=== PATIENT | male | born 1935 | race Asian ===

== ENCOUNTER 2018-10-20 06:49 | Inpatient (IN) | payer MEDICARE, OTHER ==
[~2018-10-20] VITALS: Ht 167.6 cm; Wt 60.9 kg
[2018-10-20] MEDS ORDERED: ALBUTEROL SULFATE 2.5 MG/0.5 ML NEB SOLUTION NEB ONE (07:00)
[2018-10-20] MEDS ORDERED: IPRATROPIUM BROMIDE 0.5 MG/2.5 ML NEB SOLUTION NEB ONE (07:00)
[2018-10-20] MEDS ORDERED: RANO10003 PO (07:09)
[2018-10-20] MEDS ORDERED: ISOS60TA4 PO (07:09)
[2018-10-20] MEDS ORDERED: CARV25TA32 PO (07:09)
[2018-10-20] MEDS ORDERED: ONDA4TAB4 PO (07:09)
[2018-10-20] MEDS ORDERED: AMLO5TAB66 PO (07:09)
[2018-10-20] MEDS ORDERED: APIX2.5T PO (07:09)
[2018-10-20] MEDS ORDERED: HYDR-4173 PO (07:09)
[2018-10-20] MEDS ORDERED: SEVE0.8P6 PO (07:09)
[2018-10-20] MEDS ORDERED: ATOR-2 PO (07:09)
[2018-10-20] MEDS ORDERED: INSLAN SQ (07:09)
[2018-10-20] MEDS ORDERED: PANT20TA12 PO (07:09)
[2018-10-20] MEDS ORDERED: ALLO100T PO (07:09)
[2018-10-20] MEDS ORDERED: BUME1TAB12 PO (07:09)
[2018-10-20] MEDS ORDERED: CLOP75 PO (07:09)
[2018-10-20] MEDS ORDERED: B CO1TAB6 PO (07:09)
[2018-10-20] MEDS ORDERED: DOCU250C91 PO (07:09)
[2018-10-20 07:12] LABS: BASOPHILS % (AUTO) 0.3 % (0.0-2.0); EOSINOPHILS % (AUTO) 1.1 % (1.0-6.0); HEMATOCRIT 27.3 % (41-53); HEMOGLOBIN 9.2 g/dL (13.5-17.5); LYMPHOCYTES # (AUTO) 0.6 K/uL (1.0-4.8); LYMPHOCYTES % (AUTO) 7.5 % (22.0-44.0); MEAN CORPUSCULAR HEMOGLOBIN 31.7 pg (26.0-34.0); MEAN CORPUSCULAR HGB CONC 33.8 G/dL (31.0-37.0); MEAN CORPUSCULAR VOLUME 94 fL (80-100); MONOCYTES # (AUTO) 1.1 K/uL (0.1-1.0); MONOCYTES % (AUTO) 13.7 % (2.0-9.0); NEUTROPHILS # (AUTO) 6.1 K/uL (1.8-7.7); NEUTROPHILS % (AUTO) 77.4 % (40.0-70.0); PLATELET COUNT (AUTO) 111 K/uL (150-450); RED BLOOD CELL COUNT(AUTO) 2.91 MIL/uL (4.50-5.90); RED CELL DISTRIBUTION WIDTH 17.2 % (11.5-14.5)
[2018-10-20 07:26] LABS: SOURCE, BLOOD GAS ARTERIAL; TEMPERATURE, FAHRENHEIT, BG 98.6 FAHREN (96.0-98.6)
[2018-10-20 07:30] LABS: ALBUMIN 3.1 g/dL (3.4-5.0); BILIRUBIN,TOTAL 0.7 mg/dL (0.1-1.0); CALCIUM, TOTAL 8.9 mg/dL (8.8-10.5); CREATININE 8.97 mg/dL (0.60-1.30); TOTAL PROTEIN, SERUM 6.9 g/dL (6.4-8.2)
[2018-10-20 07:33] LABS: POTASSIUM 6.5 mmol/L (3.5-5.1)
[2018-10-20 07:39] LABS: INR 1.1 (0.9-1.1); PROTHROMBIN TIME 11.4 SEC (9.4-11.6)
[2018-10-20] MEDS ORDERED: FUROSEMIDE 40 MG/4 ML VIAL IVP ONE (07:45)
[2018-10-20 08:01] LABS: LACTIC ACID 1.1 mmol/L (0.4-2.0)
[2018-10-20] MEDS ORDERED: CALCIUM GLUCONATE 100 MG/ML 10 ML IVP ONE ×2 (08:15→12:00)
[2018-10-20 08:40] LABS: APPEARANCE,URINE CLEAR (CLEAR); BILIRUBIN,URINE NEGATIVE (NEGATIVE); GLUCOSE, URINE (UA) 250 mg/dL (NEGATIVE); KETONES,URINE NEGATIVE (NEGATIVE); LEUKOCYTE ESTERASE ,URINE NEGATIVE (NEGATIVE); NITRATE,URINE NEGATIVE (NEGATIVE); OCCULT BLOOD,URINE TRACE (NEGATIVE); PROTEIN,URINE SEE CONFIRM (NEGATIVE); UROBILINOGEN,URINE 0.2 mg/dL (<=1.0)
[2018-10-20 08:51] LABS: SULFOSALICYLIC ACID,URINE 3+ (Negative)
[2018-10-20 08:52] LABS: BACTERIA,URINE Few /HPF (None Seen); SQUAMOUS EPITHELIAL CELL,UR Moderate /LPF (None Seen)
[2018-10-20] MEDS: METOPROLOL TARTRATE 25 MG TABLET PO SCH ×2 (09:00→21:28)
[2018-10-20 09:28] LABS: ABG A-A DIFF O2 187.2 mmHg (10-20.0); ABG BASE EXCESS -3.3 mmol/L (-2.0-3.0); ABG CARBOXYHEMOGLOBIN 1.1 % (0.0-1.5); ABG HCO3 22.4 mmol/L (22.0-26.0); ABG METHEMOGLOBIN 0.2 % (0.0-1.5); ABG OXYGEN CONTENT 13.7 mL/dL (15.0-23.0); ABG OXYHEMOGLOBIN 97.7 % (94.0-100.0); ABG PCO2 29 mmHg (35-45); ABG PH 7.462 (7.35-7.450); ABG TOTAL HEMOGLOBIN 9.6 G/dL (12.0-18.0); PO2, ARTERIAL BG 208.3 mmHg (71.0-79.0)
[2018-10-20 09:29] LABS: O2 DEVICE,BLOOD GAS BIPAP (ROOM AIR); SITE, BLOOD GAS RT BRACHIAL
[2018-10-20 09:30] LABS: CPAP, BG 0 cm H2O; PRESSURE SUPPORT, BG 12 cm H2O; SPONTANEOUS VT, BG 580 ml
[2018-10-20] MEDS ORDERED: INSULIN REGULAR, HUMAN 100 UNITS/ML IVP ONE (10:00)
[2018-10-20] MEDS: DEXTROSE 50%-WATER 25 GM/50 ML SYRINGE IVP ONE ×2 (10:00→13:12)
[2018-10-20] MEDS: SODIUM POLYSTYRENE SULFONATE 15 GM/60 ML SUSPENSION BOTTLE PO ONE ×2 (10:00→13:13)
[2018-10-20 10:42] VITALS: BP 153/73
[2018-10-20 10:50] VITALS: BP 153/73
[2018-10-20] MEDS ORDERED: HYDROCODONE/ACETAMINOPHEN 5-325 MG TABLET PO PRN (11:45)
[2018-10-20] MEDS ORDERED: ONDANSETRON HCL 4 MG/2 ML VIAL IVP PRN (11:45)
[2018-10-20] MEDS ORDERED: ZOLPIDEM TARTRATE 5 MG TABLET PO PRN (11:45)
[2018-10-20] MEDS ORDERED: MORPHINE SULFATE 4 MG/ML SYRINGE IVP PRN (11:45)
[2018-10-20] MEDS ORDERED: BISACODYL 10 MG RECTAL RECTAL SUPPOSITORY PR PRN (11:45)
[2018-10-20] MEDS ORDERED: ACETAMINOPHEN 325 MG TABLET PO PRN (11:45)
[2018-10-20] MEDS ORDERED: MAGNESIUM HYDROXIDE SUSPENSION 30 ML UDCUP PO PRN (11:45)
[2018-10-20] MEDS: ATORVASTATIN CALCIUM 40 MG TABLET PO SCH (13:07)
[2018-10-20] MEDS: PANTOPRAZOLE SODIUM 40 MG/VIAL IVP SCH (13:07)
[2018-10-20] MEDS: CLOPIDOGREL BISULFATE 75 MG TABLET PO SCH (13:08)
[2018-10-20] MEDS: NITROGLYCERIN 2% (1 GM=INCH) PACKET TP SCH ×2 (13:08→17:17)
[2018-10-20 15:13] VITALS: BP 148/75
[2018-10-20] MEDS: ISOSORBIDE DINITRATE 10 MG TABLET PO SCH ×2 (16:00→21:28)
[2018-10-20] MEDS ORDERED: MANNITOL 25%-12.5 GM/50 ML VIAL IVP ONE (17:46)
[2018-10-20] MEDS ORDERED: ALBUMIN HUMAN 25%-12.5GM/50ML IV BOTTLE IV ONE (17:46)
[2018-10-20] MEDS: SEVELAMER CARBONATE 800 MG POWDER PACKET PO SCH (18:56)
[2018-10-20 19:27] VITALS: BP 136/78
[2018-10-20] MEDS: HydrALAZINE HCL 25 MG TABLET PO SCH (21:28)
[2018-10-20] MEDS: DOCUSATE SODIUM 100 MG CAPSULE PO SCH (21:28)
[2018-10-20 23:33] VITALS: BP 102/58
[2018-10-21 04:40] VITALS: BP 144/68
[2018-10-21 07:39] VITALS: BP 157/70
[2018-10-21 08:04] LABS: BILIRUBIN,TOTAL 0.8 mg/dL (0.1-1.0); CALCIUM, TOTAL 9.4 mg/dL (8.8-10.5); CREATININE 6.32 mg/dL (0.60-1.30); MAGNESIUM 2.1 mg/dL (1.80-2.40); POTASSIUM 5.2 mmol/L (3.5-5.1); TOTAL PROTEIN, SERUM 6.3 g/dL (6.4-8.2)
[2018-10-21 08:06] LABS: % IRON SATURATION 12.6 % (30-44)
[2018-10-21] MEDS ORDERED: [UNRECOGNIZED DRUG - OTHER] PO SCH (09:00)
[2018-10-21] MEDS ORDERED: AmLODIPine BESYLATE 5 MG TABLET PO SCH (09:00)
[2018-10-21] MEDS ORDERED: PANTOPRAZOLE SODIUM 40 MG DR TABLET PO SCH (09:00)
[2018-10-21] MEDS ORDERED: APIXABAN 2.5 MG TABLET PO SCH ×2 (09:00)
[2018-10-21] MEDS ORDERED: CLOPIDOGREL BISULFATE 75 MG TABLET PO SCH (09:00)
[2018-10-21] MEDS ORDERED: [UNRECOGNIZED DRUG - OTHER] PO SCH (09:00)
[2018-10-21] MEDS ORDERED: CARVEDILOL 25 MG TABLET PO SCH (09:00)
[2018-10-21] MEDS: CLOPIDOGREL BISULFATE 75 MG TABLET PO SCH (09:25)
[2018-10-21] MEDS: METOPROLOL TARTRATE 25 MG TABLET PO SCH ×2 (09:25→21:27)
[2018-10-21] MEDS: VITAMIN B COMPLEX WITH C TABLET PO SCH (09:25)
[2018-10-21] MEDS: ISOSORBIDE DINITRATE 10 MG TABLET PO SCH ×3 (09:25→21:28)
[2018-10-21] MEDS: RANOLAZINE 500 MG ER TABLET PO SCH (09:25)
[2018-10-21] MEDS: SEVELAMER CARBONATE 800 MG POWDER PACKET PO SCH ×2 (09:25→17:45)
[2018-10-21] MEDS: HydrALAZINE HCL 25 MG TABLET PO SCH ×2 (09:25→21:28)
[2018-10-21] MEDS: DOCUSATE SODIUM 100 MG CAPSULE PO SCH ×2 (09:25→21:27)
[2018-10-21] MEDS: ATORVASTATIN CALCIUM 40 MG TABLET PO SCH (09:25)
[2018-10-21] MEDS: PANTOPRAZOLE SODIUM 40 MG/VIAL IVP SCH (09:26)
[2018-10-21] MEDS: NITROGLYCERIN 2% (1 GM=INCH) PACKET TP SCH ×3 (09:26→17:45)
[2018-10-21] MEDS: EPOETIN ALFA 10,000 UNITS/ML VIAL SQ SCH (09:31)
[2018-10-21] MEDS: INSULIN GLARGINE,HUM.REC.ANLOG 100 UNITS/ML SQ SCH (09:32)
[2018-10-21 09:44] LABS: GLUCOMETER DEV NAME(LOC) 5N 1P; GLUCOSE,POINT OF CARE 140 MG/DL (70-110)
[2018-10-21] MEDS: ALLOPURINOL 100 MG TABLET PO SCH (09:54)
[2018-10-21 10:09] LABS: BASOPHILS % (AUTO) 0.2 % (0.0-2.0); EOSINOPHILS % (AUTO) 1.2 % (1.0-6.0); HEMATOCRIT 24.6 % (41-53); HEMOGLOBIN 8.3 g/dL (13.5-17.5); LYMPHOCYTES # (AUTO) 0.6 K/uL (1.0-4.8); LYMPHOCYTES % (AUTO) 7.8 % (22.0-44.0); MEAN CORPUSCULAR HGB CONC 33.7 G/dL (31.0-37.0); MEAN CORPUSCULAR VOLUME 95 fL (80-100); MONOCYTES # (AUTO) 1.3 K/uL (0.1-1.0); MONOCYTES % (AUTO) 16.6 % (2.0-9.0); NEUTROPHILS # (AUTO) 5.6 K/uL (1.8-7.7); NEUTROPHILS % (AUTO) 74.2 % (40.0-70.0); PLATELET COUNT (AUTO) 103 K/uL (150-450); RED CELL DISTRIBUTION WIDTH 17.8 % (11.5-14.5)
[2018-10-21 11:35] VITALS: BP 143/57
[2018-10-21] MEDS ORDERED: AMLO-512 PO (11:55)
[2018-10-21] MEDS ORDERED: SEVEC800 PO (11:55)
[2018-10-21] MEDS ORDERED: PANT40TA25 PO (11:55)
[2018-10-21] MEDS ORDERED: SODIUM CHLORIDE 0.9% 250 ML IV ONE (13:54)
[2018-10-21] MEDS: PANTOPRAZOLE SODIUM 80 MG in SODIUM CHLORIDE 0.9% 100 ML IV SCH ×2 (13:56→22:27)
[2018-10-21 16:16] VITALS: BP 105/56
[2018-10-21 20:45] VITALS: BP 119/64
[2018-10-22] VITALS (7 sets, daily range): BP systolic 109–128; BP diastolic 49–61
[2018-10-22] MEDS: NITROGLYCERIN 2% (1 GM=INCH) PACKET TP SCH ×4 (00:15→23:17)
[2018-10-22 07:33] LABS: BASOPHILS % (AUTO) 0.5 % (0.0-2.0); EOSINOPHILS % (AUTO) 1.6 % (1.0-6.0); HEMATOCRIT 22.1 % (41-53); HEMOGLOBIN 7.6 g/dL (13.5-17.5); LYMPHOCYTES # (AUTO) 0.7 K/uL (1.0-4.8); LYMPHOCYTES % (AUTO) 11.9 % (22.0-44.0); MEAN CORPUSCULAR HEMOGLOBIN 31.6 pg (26.0-34.0); MEAN CORPUSCULAR HGB CONC 34.6 G/dL (31.0-37.0); MEAN CORPUSCULAR VOLUME 91 fL (80-100); MONOCYTES # (AUTO) 1.1 K/uL (0.1-1.0); MONOCYTES % (AUTO) 18.1 % (2.0-9.0); NEUTROPHILS # (AUTO) 4.2 K/uL (1.8-7.7); NEUTROPHILS % (AUTO) 67.9 % (40.0-70.0); PLATELET COUNT (AUTO) 102 K/uL (150-450); RED BLOOD CELL COUNT(AUTO) 2.42 MIL/uL (4.50-5.90); RED CELL DISTRIBUTION WIDTH 17.6 % (11.5-14.5)
[2018-10-22 07:50] LABS: ALBUMIN 2.8 g/dL (3.4-5.0); BILIRUBIN,TOTAL 0.7 mg/dL (0.1-1.0); CALCIUM, TOTAL 7.8 mg/dL (8.8-10.5); CREATININE 5.49 mg/dL (0.60-1.30); MAGNESIUM 1.9 mg/dL (1.80-2.40); POTASSIUM 4.4 mmol/L (3.5-5.1); TOTAL PROTEIN, SERUM 5.5 g/dL (6.4-8.2)
[2018-10-22] MEDS: PANTOPRAZOLE SODIUM 80 MG in SODIUM CHLORIDE 0.9% 100 ML IV SCH ×2 (08:07→19:53)
[2018-10-22] MEDS: ISOSORBIDE DINITRATE 10 MG TABLET PO SCH ×3 (08:08→21:00)
[2018-10-22] MEDS: RANOLAZINE 500 MG ER TABLET PO SCH (08:08)
[2018-10-22] MEDS: ATORVASTATIN CALCIUM 40 MG TABLET PO SCH (08:08)
[2018-10-22] MEDS: SEVELAMER CARBONATE 800 MG POWDER PACKET PO SCH ×2 (08:08→17:50)
[2018-10-22] MEDS: VITAMIN B COMPLEX WITH C TABLET PO SCH (08:08)
[2018-10-22] MEDS: DOCUSATE SODIUM 100 MG CAPSULE PO SCH ×2 (08:08→20:59)
[2018-10-22] MEDS: ALLOPURINOL 100 MG TABLET PO SCH (08:09)
[2018-10-22] MEDS: METOPROLOL TARTRATE 25 MG TABLET PO SCH ×2 (08:09→21:00)
[2018-10-22] MEDS: HydrALAZINE HCL 25 MG TABLET PO SCH ×2 (08:14→21:00)
[2018-10-22] MEDS: AmLODIPine BESYLATE 10 MG TABLET PO SCH (08:15)
[2018-10-22] MEDS: INSULIN GLARGINE,HUM.REC.ANLOG 100 UNITS/ML SQ SCH (08:19)
[2018-10-23] VITALS (12 sets, daily range): BP systolic 125–172; BP diastolic 58–79
[2018-10-23] MEDS: PANTOPRAZOLE SODIUM 80 MG in SODIUM CHLORIDE 0.9% 100 ML IV SCH (05:32)
[2018-10-23] MEDS ORDERED: SODIUM CHLORIDE 0.9% 1,000 ML IV ONE ×2 (06:38→12:03)
[2018-10-23 07:28] LABS: BASOPHILS % (AUTO) 0.6 % (0.0-2.0); EOSINOPHILS % (AUTO) 1.3 % (1.0-6.0); HEMATOCRIT 21.6 % (41-53); HEMOGLOBIN 7.5 g/dL (13.5-17.5); LYMPHOCYTES # (AUTO) 0.8 K/uL (1.0-4.8); LYMPHOCYTES % (AUTO) 12.9 % (22.0-44.0); MEAN CORPUSCULAR HEMOGLOBIN 31.6 pg (26.0-34.0); MEAN CORPUSCULAR HGB CONC 34.6 G/dL (31.0-37.0); MEAN CORPUSCULAR VOLUME 91 fL (80-100); MONOCYTES # (AUTO) 0.9 K/uL (0.1-1.0); MONOCYTES % (AUTO) 15.2 % (2.0-9.0); NEUTROPHILS # (AUTO) 4.2 K/uL (1.8-7.7); PLATELET COUNT (AUTO) 111 K/uL (150-450); RED BLOOD CELL COUNT(AUTO) 2.36 MIL/uL (4.50-5.90); RED CELL DISTRIBUTION WIDTH 18.6 % (11.5-14.5)
[2018-10-23 07:44] LABS: ALBUMIN 3.1 g/dL (3.4-5.0); BILIRUBIN,TOTAL 0.5 mg/dL (0.1-1.0); CALCIUM, TOTAL 7.6 mg/dL (8.8-10.5); CREATININE 5.37 mg/dL (0.60-1.30); MAGNESIUM 1.8 mg/dL (1.80-2.40); POTASSIUM 3.7 mmol/L (3.5-5.1)
[2018-10-23] MEDS: NITROGLYCERIN 2% (1 GM=INCH) PACKET TP SCH (08:00)
[2018-10-23] MEDS: SEVELAMER CARBONATE 800 MG POWDER PACKET PO SCH ×2 (08:00→18:00)
[2018-10-23] MEDS: METOPROLOL TARTRATE 25 MG TABLET PO SCH ×2 (09:00→20:34)
[2018-10-23] MEDS: ISOSORBIDE DINITRATE 10 MG TABLET PO SCH ×3 (09:00→20:34)
[2018-10-23] MEDS: ATORVASTATIN CALCIUM 40 MG TABLET PO SCH ×2 (09:00→10:49)
[2018-10-23] MEDS: VITAMIN B COMPLEX WITH C TABLET PO SCH ×2 (09:00→10:50)
[2018-10-23] MEDS: INSULIN GLARGINE,HUM.REC.ANLOG 100 UNITS/ML SQ SCH (09:00)
[2018-10-23] MEDS: ALLOPURINOL 100 MG TABLET PO SCH ×2 (09:00→10:50)
[2018-10-23] MEDS: DOCUSATE SODIUM 100 MG CAPSULE PO SCH ×2 (09:00→20:34)
[2018-10-23] MEDS ORDERED: SODIUM CHLORIDE 0.9% 250 ML IV ONE (10:08)
[2018-10-23] MEDS: AmLODIPine BESYLATE 10 MG TABLET PO SCH (10:49)
[2018-10-23] MEDS: HydrALAZINE HCL 25 MG TABLET PO SCH ×2 (10:49→20:34)
[2018-10-23] MEDS: EPOETIN ALFA 10,000 UNITS/ML VIAL SQ SCH (10:49)
[2018-10-23] MEDS: RANOLAZINE 500 MG ER TABLET PO SCH (10:50)
[2018-10-23] MEDS: PANTOPRAZOLE SODIUM 40 MG/VIAL IVP SCH ×2 (13:30→20:34)
[2018-10-23 15:39] LABS: HEMATOCRIT 26.7 % (41-53); HEMOGLOBIN 9.1 g/dL (13.5-17.5)
[2018-10-24 05:27] VITALS: BP 142/81
[2018-10-24 07:18] VITALS: BP 137/59
[2018-10-24 07:20] LABS: BASOPHILS % (AUTO) 0.9 % (0.0-2.0); EOSINOPHILS % (AUTO) 1.6 % (1.0-6.0); HEMATOCRIT 29.1 % (41-53); HEMOGLOBIN 9.8 g/dL (13.5-17.5); LYMPHOCYTES # (AUTO) 0.6 K/uL (1.0-4.8); MEAN CORPUSCULAR HEMOGLOBIN 30.3 pg (26.0-34.0); MEAN CORPUSCULAR HGB CONC 33.6 G/dL (31.0-37.0); MEAN CORPUSCULAR VOLUME 90 fL (80-100); MONOCYTES # (AUTO) 1.1 K/uL (0.1-1.0); MONOCYTES % (AUTO) 16.9 % (2.0-9.0); NEUTROPHILS # (AUTO) 4.4 K/uL (1.8-7.7); NEUTROPHILS % (AUTO) 70.6 % (40.0-70.0); PLATELET COUNT (AUTO) 142 K/uL (150-450); RED BLOOD CELL COUNT(AUTO) 3.23 MIL/uL (4.50-5.90)
[2018-10-24 07:55] LABS: ALBUMIN 3.2 g/dL (3.4-5.0); BILIRUBIN,TOTAL 0.8 mg/dL (0.1-1.0); CALCIUM, TOTAL 8.5 mg/dL (8.8-10.5); CREATININE 5.98 mg/dL (0.60-1.30); MAGNESIUM 1.9 mg/dL (1.80-2.40); POTASSIUM 4.7 mmol/L (3.5-5.1)
[2018-10-24] MEDS: RANOLAZINE 500 MG ER TABLET PO SCH (08:19)
[2018-10-24] MEDS: SEVELAMER CARBONATE 800 MG POWDER PACKET PO SCH ×2 (08:19→16:37)
[2018-10-24] MEDS: ATORVASTATIN CALCIUM 40 MG TABLET PO SCH (08:19)
[2018-10-24] MEDS: AmLODIPine BESYLATE 10 MG TABLET PO SCH (08:19)
[2018-10-24] MEDS: HydrALAZINE HCL 25 MG TABLET PO SCH ×2 (08:19→20:20)
[2018-10-24] MEDS: PANTOPRAZOLE SODIUM 40 MG/VIAL IVP SCH ×2 (08:19→20:20)
[2018-10-24] MEDS: DOCUSATE SODIUM 100 MG CAPSULE PO SCH ×2 (08:20→20:20)
[2018-10-24] MEDS: ALLOPURINOL 100 MG TABLET PO SCH (08:20)
[2018-10-24] MEDS: ISOSORBIDE DINITRATE 10 MG TABLET PO SCH ×3 (08:20→20:20)
[2018-10-24] MEDS: METOPROLOL TARTRATE 25 MG TABLET PO SCH ×2 (08:20→20:20)
[2018-10-24] MEDS: VITAMIN B COMPLEX WITH C TABLET PO SCH (08:23)
[2018-10-24] MEDS: INSULIN GLARGINE,HUM.REC.ANLOG 100 UNITS/ML SQ SCH (08:42)
[2018-10-24 11:41] VITALS: BP 101/56
[2018-10-24 12:59] LABS: GLUCOMETER DEV NAME(LOC) 5S.2; GLUCOSE,POINT OF CARE 163 MG/DL (70-110)
[2018-10-24] MEDS: APIXABAN 2.5 MG TABLET PO SCH (16:38)
[2018-10-24 19:29] VITALS: BP 126/63
[2018-10-24 23:47] VITALS: BP 136/68
[2018-10-25 04:56] VITALS: BP 151/65
[2018-10-25 06:30] LABS: BASOPHILS % (AUTO) 0.7 % (0.0-2.0); HEMATOCRIT 29.1 % (41-53); HEMOGLOBIN 9.7 g/dL (13.5-17.5); LYMPHOCYTES # (AUTO) 0.7 K/uL (1.0-4.8); LYMPHOCYTES % (AUTO) 14.2 % (22.0-44.0); MEAN CORPUSCULAR HGB CONC 33.2 G/dL (31.0-37.0); MEAN CORPUSCULAR VOLUME 90 fL (80-100); MONOCYTES # (AUTO) 0.9 K/uL (0.1-1.0); MONOCYTES % (AUTO) 17.4 % (2.0-9.0); NEUTROPHILS # (AUTO) 3.5 K/uL (1.8-7.7); NEUTROPHILS % (AUTO) 65.7 % (40.0-70.0); PLATELET COUNT (AUTO) 148 K/uL (150-450); RED BLOOD CELL COUNT(AUTO) 3.23 MIL/uL (4.50-5.90); RED CELL DISTRIBUTION WIDTH 19.7 % (11.5-14.5)
[2018-10-25 07:21] VITALS: BP 125/56
[2018-10-25] MEDS ORDERED: SODIUM CHLORIDE 0.9% 2,000 ML IV ONE (07:31)
[2018-10-25] MEDS: SEVELAMER CARBONATE 800 MG POWDER PACKET PO SCH (08:00)
[2018-10-25] MEDS ORDERED: MANNITOL 25%-12.5 GM/50 ML VIAL IVP PRN (08:15)
[2018-10-25] MEDS ORDERED: CLOPIDOGREL BISULFATE 75 MG TABLET PO SCH (09:00)
[2018-10-25] MEDS: VITAMIN B COMPLEX WITH C TABLET PO SCH (09:00)
[2018-10-25] MEDS: ISOSORBIDE DINITRATE 10 MG TABLET PO SCH (09:00)
[2018-10-25] MEDS: HydrALAZINE HCL 25 MG TABLET PO SCH (09:00)
[2018-10-25] MEDS: EPOETIN ALFA 10,000 UNITS/ML VIAL SQ SCH (09:00)
[2018-10-25 11:17] VITALS: BP 100/65
[2018-10-25] MEDS: DOCUSATE SODIUM 100 MG CAPSULE PO SCH (12:07)
[2018-10-25] MEDS: APIXABAN 2.5 MG TABLET PO SCH (12:07)
[2018-10-25] MEDS: METOPROLOL TARTRATE 25 MG TABLET PO SCH (12:07)
[2018-10-25] MEDS: ALLOPURINOL 100 MG TABLET PO SCH (12:07)
[2018-10-25] MEDS: RANOLAZINE 500 MG ER TABLET PO SCH (12:07)
[2018-10-25] MEDS: AmLODIPine BESYLATE 10 MG TABLET PO SCH (12:07)
[2018-10-25] MEDS: ATORVASTATIN CALCIUM 40 MG TABLET PO SCH (12:08)
[2018-10-25] MEDS: PANTOPRAZOLE SODIUM 40 MG/VIAL IVP SCH (12:08)
[2018-10-25] MEDS: INSULIN GLARGINE,HUM.REC.ANLOG 100 UNITS/ML SQ SCH (12:17)
[2018-10-25 15:09] VITALS: BP 109/71
[2018-10-25 19:49] LABS: GLUCOMETER DEV NAME(LOC) 5S.2; GLUCOSE,POINT OF CARE 79 MG/DL (70-110)
== END 2018-10-25 15:35 | disposition home or self-care (01) | DRG 280 ==
LOC: EMS 06:51 → 5S 08:43 → 5N 10-23 17:45 → 5S 10-23 17:50 → 5N 10-23 18:07 → 5S 10-23 18:50
PROVIDERS: ADMIT Internal Medicine; ATTEND Internal Medicine
PROC: 5A1D70Z Performance of Urinary Filtration, Intermittent, Less than 6 Hours Per Day (ICD-10-PCS; 2018-10-20)
PROC: 5A1D70Z Performance of Urinary Filtration, Intermittent, Less than 6 Hours Per Day (ICD-10-PCS; 2018-10-21)
PROC: 30233N1 Transfusion of Nonautologous Red Blood Cells into Peripheral Vein, Percutaneous Approach (ICD-10-PCS; 2018-10-23)
PROC: 5A1D70Z Performance of Urinary Filtration, Intermittent, Less than 6 Hours Per Day (ICD-10-PCS; 2018-10-23)
PROC: 0DJ08ZZ Inspection of Upper Intestinal Tract, Via Natural or Artificial Opening Endoscopic (ICD-10-PCS; principal; 2018-10-23 12:00)
PROC: 5A1D70Z Performance of Urinary Filtration, Intermittent, Less than 6 Hours Per Day (ICD-10-PCS; 2018-10-25)
DX: I21.4 Non-ST elevation (NSTEMI) myocardial infarction (principal); J96.91 Respiratory failure, unspecified with hypoxia; I50.21 Acute systolic (congestive) heart failure; N18.6 End stage renal disease; K25.4 Chronic or unspecified gastric ulcer with hemorrhage; I13.2 Hypertensive heart and chronic kidney disease with heart failure and with stage 5 chronic kidney disease, or end stage renal disease; E44.0 Moderate protein-calorie malnutrition; N25.81 Secondary hyperparathyroidism of renal origin; I21.9 Acute myocardial infarction, unspecified; E87.5 Hyperkalemia; E78.5 Hyperlipidemia, unspecified; E11.22 Type 2 diabetes mellitus with diabetic chronic kidney disease; M10.9 Gout, unspecified; I48.0 Paroxysmal atrial fibrillation; K31.9 Disease of stomach and duodenum, unspecified; D63.1 Anemia in chronic kidney disease; F32.9 Major depressive disorder, single episode, unspecified; G89.29 Other chronic pain; E11.51 Type 2 diabetes mellitus with diabetic peripheral angiopathy without gangrene; E83.39 Other disorders of phosphorus metabolism; K59.09 Other constipation; I25.119 Atherosclerotic heart disease of native coronary artery with unspecified angina pectoris; K59.00 Constipation, unspecified; K64.9 Unspecified hemorrhoids; Z79.01 Long term (current) use of anticoagulants; Z99.2 Dependence on renal dialysis; Z79.4 Long term (current) use of insulin; Z91.11 Patient's noncompliance with dietary regimen; Z95.1 Presence of aortocoronary bypass graft; Z95.5 Presence of coronary angioplasty implant and graft
CPT/HCPCS: 82271; 82728; 82805; 83540; 83550; 83605; 83735; 84132; 85014; 85018; 86704; 86706; 86850; 86900; 86901; 86920; 87040; 87081; 87340; 93005; 93306; 94640; 94660; 96374; 96375; 97161; 97530; 99291; C9113; G0378; J0610; J0885; J1815; J1940; J2150; J7030; J7050; P9016; P9047

== ENCOUNTER 2018-12-30 18:38 | Inpatient (IN) | payer MEDICARE, OTHER ==
[~2018-12-30] VITALS: Ht 167.6 cm; Wt 57.5 kg
[~2018-12-30 18:38] MED LIST: ATOR-2 PO; B CO1TAB6 PO; CARV25TA32 PO; DOCU250C91 PO; ONDA4TAB4 PO; PANT40TA25 PO; RANO10003 PO; SEVEC800 PO
[2018-12-30] MEDS ORDERED: ASPI-556 PO (18:48)
[2018-12-30 18:54] LABS: GLUCOSE,POINT OF CARE 144 MG/DL (70-110)
[2018-12-30 19:18] LABS: BASOPHILS % (AUTO) 0.4 % (0.0-2.0); EOSINOPHILS % (AUTO) 1.1 % (1.0-6.0); HEMATOCRIT 29.6 % (41-53); HEMOGLOBIN 9.7 g/dL (13.5-17.5); LYMPHOCYTES # (AUTO) 0.6 K/uL (1.0-4.8); LYMPHOCYTES % (AUTO) 10.4 % (22.0-44.0); MEAN CORPUSCULAR HEMOGLOBIN 29.3 pg (26.0-34.0); MEAN CORPUSCULAR HGB CONC 32.8 G/dL (31.0-37.0); MEAN CORPUSCULAR VOLUME 89 fL (80-100); MONOCYTES # (AUTO) 0.9 K/uL (0.1-1.0); MONOCYTES % (AUTO) 15.8 % (2.0-9.0); NEUTROPHILS # (AUTO) 4.2 K/uL (1.8-7.7); NEUTROPHILS % (AUTO) 72.3 % (40.0-70.0); PLATELET COUNT (AUTO) 138 K/uL (150-450); RED BLOOD CELL COUNT(AUTO) 3.33 MIL/uL (4.50-5.90); RED CELL DISTRIBUTION WIDTH 21.2 % (11.5-14.5)
[2018-12-30 19:34] LABS: CALCIUM, TOTAL 9.2 mg/dL (8.8-10.5); CREATININE 2.73 mg/dL (0.60-1.30); POTASSIUM 3.8 mmol/L (3.5-5.1)
[2018-12-30 19:38] LABS: ALBUMIN 3.1 g/dL (3.4-5.0); BILIRUBIN,TOTAL 0.8 mg/dL (0.1-1.0); TOTAL PROTEIN, SERUM 7.3 g/dL (6.4-8.2)
[2018-12-30] MEDS ORDERED: MAGNESIUM HYDROXIDE SUSPENSION 30 ML UDCUP PO PRN (22:00)
[2018-12-30] MEDS ORDERED: HYDROCODONE/ACETAMINOPHEN 5-325 MG TABLET PO PRN (22:00)
[2018-12-30] MEDS ORDERED: ACETAMINOPHEN 325 MG TABLET PO PRN (22:00)
[2018-12-30] MEDS ORDERED: MORPHINE SULFATE 2 MG/ML SYRINGE IVP PRN (22:00)
[2018-12-30] MEDS ORDERED: BISACODYL 10 MG RECTAL RECTAL SUPPOSITORY PR PRN (22:00)
[2018-12-30] MEDS ORDERED: ONDANSETRON HCL 4 MG TABLET PO ONE (22:15)
[2018-12-30 22:33] LABS: GLUCOSE,POINT OF CARE 135 MG/DL (70-110)
[2018-12-30] MEDS: HEPARIN SODIUM,PORCINE 5,000 UNITS/ML VIAL SQ SCH (23:22)
[2018-12-31] MEDS ORDERED: SEVELAMER CARBONATE 800 MG TABLET PO SCH (08:00)
[2018-12-31 08:13] LABS: GLUCOSE,POINT OF CARE 126 MG/DL (70-110)
[2018-12-31 08:54] VITALS: BP 171/99
[2018-12-31 09:35] LABS: BASOPHILS % (AUTO) 0.7 % (0.0-2.0); EOSINOPHILS % (AUTO) 1.3 % (1.0-6.0); HEMATOCRIT 28.6 % (41-53); HEMOGLOBIN 9.5 g/dL (13.5-17.5); LYMPHOCYTES # (AUTO) 0.7 K/uL (1.0-4.8); LYMPHOCYTES % (AUTO) 11.3 % (22.0-44.0); MEAN CORPUSCULAR HEMOGLOBIN 29.9 pg (26.0-34.0); MEAN CORPUSCULAR HGB CONC 33.1 G/dL (31.0-37.0); MEAN CORPUSCULAR VOLUME 90 fL (80-100); MONOCYTES # (AUTO) 1.3 K/uL (0.1-1.0); MONOCYTES % (AUTO) 19.9 % (2.0-9.0); NEUTROPHILS # (AUTO) 4.3 K/uL (1.8-7.7); NEUTROPHILS % (AUTO) 66.8 % (40.0-70.0); RED BLOOD CELL COUNT(AUTO) 3.16 MIL/uL (4.50-5.90); RED CELL DISTRIBUTION WIDTH 20.3 % (11.5-14.5)
[2018-12-31 09:45] LABS: CALCIUM, TOTAL 8.7 mg/dL (8.8-10.5); CREATININE 4.18 mg/dL (0.60-1.30); POTASSIUM 4.7 mmol/L (3.5-5.1)
[2018-12-31] MEDS: HEPARIN SODIUM,PORCINE 5,000 UNITS/ML VIAL SQ SCH ×3 (09:45→23:46)
[2018-12-31] MEDS: ATORVASTATIN CALCIUM 40 MG TABLET PO SCH (09:45)
[2018-12-31] MEDS: DOCUSATE SODIUM 100 MG CAPSULE PO SCH ×2 (09:45→21:42)
[2018-12-31] MEDS: PANTOPRAZOLE SODIUM 40 MG DR TABLET PO SCH (09:45)
[2018-12-31] MEDS: ONDANSETRON HCL 4 MG/2 ML VIAL IVP PRN (09:45)
[2018-12-31] MEDS: CARVEDILOL 25 MG TABLET PO SCH (09:45)
[2018-12-31] MEDS: ASPIRIN 81 MG EC TABLET PO SCH (09:46)
[2018-12-31] MEDS: VITAMIN B COMPLEX WITH C TABLET PO SCH (09:46)
[2018-12-31 10:18] LABS: PLATELET COUNT (AUTO) 108 K/uL (150-450); PLATELET MORPHOLOGY COMMENT LARGE PLTS PRESENT
[2018-12-31 11:15] VITALS: BP 146/65
[2018-12-31] MEDS ORDERED: RANO500T3 PO (11:40)
[2018-12-31] MEDS: RANOLAZINE 500 MG ER TABLET PO SCH ×2 (12:15→21:43)
[2018-12-31] MEDS: ISOSORBIDE MONONITRATE 20 MG TABLET PO SCH ×2 (12:15→21:43)
[2018-12-31 15:30] VITALS: BP 150/75
[2018-12-31] MEDS: SEVELAMER CARBONATE 800 MG TABLET PO SCH (17:41)
[2018-12-31 19:31] VITALS: BP 145/74
[2018-12-31] MEDS: HydrALAZINE HCL 25 MG TABLET PO SCH (21:42)
[2018-12-31] MEDS: ZOLPIDEM TARTRATE 5 MG TABLET PO PRN (23:46)
[2019-01-01 01:00] VITALS: BP 158/69
[2019-01-01 05:12] VITALS: BP 121/68
[2019-01-01 07:07] LABS: BASOPHILS % (AUTO) 0.5 % (0.0-2.0); EOSINOPHILS % (AUTO) 1.7 % (1.0-6.0); HEMATOCRIT 24.9 % (41-53); HEMOGLOBIN 8.2 g/dL (13.5-17.5); LYMPHOCYTES # (AUTO) 0.6 K/uL (1.0-4.8); LYMPHOCYTES % (AUTO) 12.6 % (22.0-44.0); MEAN CORPUSCULAR HEMOGLOBIN 29.6 pg (26.0-34.0); MEAN CORPUSCULAR HGB CONC 32.8 G/dL (31.0-37.0); MEAN CORPUSCULAR VOLUME 90 fL (80-100); MONOCYTES % (AUTO) 19.9 % (2.0-9.0); NEUTROPHILS # (AUTO) 3.3 K/uL (1.8-7.7); NEUTROPHILS % (AUTO) 65.3 % (40.0-70.0); RED BLOOD CELL COUNT(AUTO) 2.76 MIL/uL (4.50-5.90); RED CELL DISTRIBUTION WIDTH 20.4 % (11.5-14.5)
[2019-01-01 07:15] LABS: CALCIUM, TOTAL 8.6 mg/dL (8.8-10.5); CREATININE 5.81 mg/dL (0.60-1.30); POTASSIUM 4.3 mmol/L (3.5-5.1)
[2019-01-01 07:28] VITALS: BP 160/65
[2019-01-01] MEDS: PANTOPRAZOLE SODIUM 40 MG DR TABLET PO SCH (08:23)
[2019-01-01] MEDS: SEVELAMER CARBONATE 800 MG TABLET PO SCH ×3 (08:23→17:32)
[2019-01-01] MEDS: HEPARIN SODIUM,PORCINE 5,000 UNITS/ML VIAL SQ SCH ×3 (08:23→23:30)
[2019-01-01] MEDS: RANOLAZINE 500 MG ER TABLET PO SCH (08:23)
[2019-01-01] MEDS: CARVEDILOL 25 MG TABLET PO SCH (08:23)
[2019-01-01] MEDS: VITAMIN B COMPLEX WITH C TABLET PO SCH (08:23)
[2019-01-01] MEDS: DOCUSATE SODIUM 100 MG CAPSULE PO SCH ×2 (08:23→20:08)
[2019-01-01] MEDS: ATORVASTATIN CALCIUM 40 MG TABLET PO SCH (08:23)
[2019-01-01] MEDS: ASPIRIN 81 MG EC TABLET PO SCH (08:24)
[2019-01-01] MEDS: ISOSORBIDE MONONITRATE 20 MG TABLET PO SCH ×2 (08:24→20:08)
[2019-01-01] MEDS: EPOETIN ALFA 10,000 UNITS/ML VIAL SQ SCH (08:24)
[2019-01-01 08:45] LABS: PLATELET COUNT (AUTO) 94 K/uL (150-450)
[2019-01-01 08:47] LABS: PLATELET MORPHOLOGY COMMENT LARGE PLTS PRESENT
[2019-01-01] MEDS: HydrALAZINE HCL 25 MG TABLET PO SCH ×2 (09:00→20:08)
[2019-01-01 11:46] VITALS: BP 148/79
[2019-01-01] MEDS ORDERED: SODIUM CHLORIDE 0.9% 2,000 ML IV ONE (13:54)
[2019-01-01 16:38] LABS: GLUCOMETER DEV NAME(LOC) 5N.2; GLUCOSE,POINT OF CARE 108 MG/DL (70-110)
[2019-01-01 19:12] VITALS: BP 171/83
[2019-01-02] VITALS (7 sets, daily range): BP systolic 125–160; BP diastolic 52–85
[2019-01-02] MEDS: ZOLPIDEM TARTRATE 5 MG TABLET PO PRN (00:05)
[2019-01-02 06:22] LABS: BASOPHILS % (AUTO) 0.5 % (0.0-2.0); EOSINOPHILS % (AUTO) 1.4 % (1.0-6.0); HEMATOCRIT 27.8 % (41-53); HEMOGLOBIN 8.9 g/dL (13.5-17.5); LYMPHOCYTES # (AUTO) 0.6 K/uL (1.0-4.8); LYMPHOCYTES % (AUTO) 10.6 % (22.0-44.0); MEAN CORPUSCULAR HEMOGLOBIN 29.2 pg (26.0-34.0); MEAN CORPUSCULAR HGB CONC 31.9 G/dL (31.0-37.0); MEAN CORPUSCULAR VOLUME 92 fL (80-100); MONOCYTES % (AUTO) 18.5 % (2.0-9.0); NEUTROPHILS # (AUTO) 3.6 K/uL (1.8-7.7); PLATELET COUNT (AUTO) 97 K/uL (150-450); RED BLOOD CELL COUNT(AUTO) 3.04 MIL/uL (4.50-5.90); RED CELL DISTRIBUTION WIDTH 20.1 % (11.5-14.5)
[2019-01-02 06:38] LABS: CALCIUM, TOTAL 8.8 mg/dL (8.8-10.5); CREATININE 3.81 mg/dL (0.60-1.30); POTASSIUM 4.3 mmol/L (3.5-5.1)
[2019-01-02] MEDS: RANOLAZINE 500 MG ER TABLET PO SCH (06:41)
[2019-01-02] MEDS: SEVELAMER CARBONATE 800 MG TABLET PO SCH ×3 (06:41→16:55)
[2019-01-02] MEDS: ATORVASTATIN CALCIUM 40 MG TABLET PO SCH (09:11)
[2019-01-02] MEDS: DOCUSATE SODIUM 100 MG CAPSULE PO SCH ×2 (09:11→20:24)
[2019-01-02] MEDS: VITAMIN B COMPLEX WITH C TABLET PO SCH (09:11)
[2019-01-02] MEDS: HydrALAZINE HCL 25 MG TABLET PO SCH ×2 (09:11→20:24)
[2019-01-02] MEDS: PANTOPRAZOLE SODIUM 40 MG DR TABLET PO SCH (09:12)
[2019-01-02] MEDS: CARVEDILOL 25 MG TABLET PO SCH ×2 (09:12→20:24)
[2019-01-02] MEDS: ASPIRIN 81 MG EC TABLET PO SCH (09:12)
[2019-01-02] MEDS: ISOSORB DINIT/HYDRALAZINE HCL 20-37.5 MG TABLET PO SCH ×2 (09:14→20:24)
[2019-01-02] MEDS: HEPARIN SODIUM,PORCINE 5,000 UNITS/ML VIAL SQ SCH ×3 (09:18→23:24)
[2019-01-03 05:30] VITALS: BP 138/59
[2019-01-03] MEDS: RANOLAZINE 500 MG ER TABLET PO SCH (06:32)
[2019-01-03] MEDS: SEVELAMER CARBONATE 800 MG TABLET PO SCH ×3 (06:32→18:09)
[2019-01-03 06:35] LABS: HEMATOCRIT 26.9 % (41-53); HEMOGLOBIN 8.8 g/dL (13.5-17.5); MEAN CORPUSCULAR HEMOGLOBIN 29.6 pg (26.0-34.0); MEAN CORPUSCULAR HGB CONC 32.7 G/dL (31.0-37.0); MEAN CORPUSCULAR VOLUME 91 fL (80-100); PLATELET COUNT (AUTO) 93 K/uL (150-450); RED BLOOD CELL COUNT(AUTO) 2.97 MIL/uL (4.50-5.90); RED CELL DISTRIBUTION WIDTH 20.1 % (11.5-14.5)
[2019-01-03 06:53] LABS: BILIRUBIN,TOTAL 0.6 mg/dL (0.1-1.0); CREATININE 3.99 mg/dL (0.60-1.30); MAGNESIUM 1.9 mg/dL (1.80-2.40); POTASSIUM 4.1 mmol/L (3.5-5.1); TOTAL PROTEIN, SERUM 6.5 g/dL (6.4-8.2)
[2019-01-03] MEDS: VITAMIN B COMPLEX WITH C TABLET PO SCH (08:14)
[2019-01-03] MEDS: CARVEDILOL 25 MG TABLET PO SCH (08:14)
[2019-01-03] MEDS: DOCUSATE SODIUM 100 MG CAPSULE PO SCH ×2 (08:14→20:51)
[2019-01-03] MEDS: ASPIRIN 81 MG EC TABLET PO SCH (08:14)
[2019-01-03] MEDS: PANTOPRAZOLE SODIUM 40 MG DR TABLET PO SCH (08:14)
[2019-01-03] MEDS: ATORVASTATIN CALCIUM 40 MG TABLET PO SCH (08:15)
[2019-01-03] MEDS: EPOETIN ALFA 10,000 UNITS/ML VIAL SQ SCH (08:16)
[2019-01-03] MEDS: HEPARIN SODIUM,PORCINE 5,000 UNITS/ML VIAL SQ SCH ×3 (08:16→23:54)
[2019-01-03] MEDS: ISOSORB DINIT/HYDRALAZINE HCL 20-37.5 MG TABLET PO SCH ×2 (08:22→20:51)
[2019-01-03] MEDS: HydrALAZINE HCL 25 MG TABLET PO SCH ×2 (08:22→20:51)
[2019-01-03 08:34] VITALS: BP 156/77
[2019-01-03 08:53] LABS: BAND NEUTROPHILS % (MANUAL) 1 % (0-5); EOSINOPHILS % (MANUAL) 2 % (1-6); LYMPHOCYTES % (MANUAL) 22 % (22-44); MONOCYTES % (MANUAL) 9 % (2-9); SEGMENTED NEUTROPHILS % 66 % (40-70)
[2019-01-03] MEDS ORDERED: HYDR25TA84 PO (12:12)
[2019-01-03] MEDS ORDERED: ISOS30TA6 PO (12:12)
[2019-01-03 12:18] VITALS: BP 119/61
[2019-01-03] MEDS: DILTIAZEM HCL 125 MG in DEXTROSE 5%-WATER 100 ML IV SCH (18:01)
[2019-01-03 20:32] VITALS: BP 131/67
[2019-01-03] MEDS: CARVEDILOL 6.25 MG TABLET PO SCH (20:52)
[2019-01-03] MEDS: ZOLPIDEM TARTRATE 5 MG TABLET PO PRN (20:58)
[2019-01-04 00:04] VITALS: BP 130/54
[2019-01-04 04:40] VITALS: BP 122/64
[2019-01-04] MEDS: RANOLAZINE 500 MG ER TABLET PO SCH (06:29)
[2019-01-04] MEDS: SEVELAMER CARBONATE 800 MG TABLET PO SCH ×3 (06:29→17:39)
[2019-01-04 07:56] VITALS: BP 137/63
[2019-01-04] MEDS: DOCUSATE SODIUM 100 MG CAPSULE PO SCH ×2 (10:04→20:43)
[2019-01-04] MEDS: ASPIRIN 81 MG EC TABLET PO SCH (10:04)
[2019-01-04] MEDS: CARVEDILOL 6.25 MG TABLET PO SCH ×2 (10:04→20:43)
[2019-01-04] MEDS: PANTOPRAZOLE SODIUM 40 MG DR TABLET PO SCH (10:04)
[2019-01-04] MEDS: HEPARIN SODIUM,PORCINE 5,000 UNITS/ML VIAL SQ SCH ×2 (10:04→17:39)
[2019-01-04] MEDS: ISOSORB DINIT/HYDRALAZINE HCL 20-37.5 MG TABLET PO SCH ×2 (10:05→20:42)
[2019-01-04] MEDS: HydrALAZINE HCL 25 MG TABLET PO SCH ×2 (10:06→20:43)
[2019-01-04] MEDS: ATORVASTATIN CALCIUM 40 MG TABLET PO SCH (10:06)
[2019-01-04] MEDS: VITAMIN B COMPLEX WITH C TABLET PO SCH (10:06)
[2019-01-04] MEDS: DILTIAZEM HCL 125 MG in DEXTROSE 5%-WATER 100 ML IV SCH (11:29)
[2019-01-04 11:43] VITALS: BP 140/42
[2019-01-04 16:03] VITALS: BP 142/59
[2019-01-04] MEDS: DILTIAZEM HCL 60 MG TABLET PO SCH ×2 (17:39→20:43)
[2019-01-04 20:20] VITALS: BP 162/66
[2019-01-04] MEDS: ZOLPIDEM TARTRATE 5 MG TABLET PO PRN (20:43)
[2019-01-05 00:17] VITALS: BP 158/60
[2019-01-05] MEDS: HEPARIN SODIUM,PORCINE 5,000 UNITS/ML VIAL SQ SCH ×2 (01:12→08:12)
[2019-01-05 05:04] VITALS: BP 145/72
[2019-01-05] MEDS: RANOLAZINE 500 MG ER TABLET PO SCH (06:51)
[2019-01-05] MEDS: SEVELAMER CARBONATE 800 MG TABLET PO SCH ×2 (06:51→11:43)
[2019-01-05 07:50] VITALS: BP 158/63
[2019-01-05] MEDS: ISOSORB DINIT/HYDRALAZINE HCL 20-37.5 MG TABLET PO SCH (08:11)
[2019-01-05] MEDS: DILTIAZEM HCL 60 MG TABLET PO SCH (08:11)
[2019-01-05] MEDS: DOCUSATE SODIUM 100 MG CAPSULE PO SCH (08:11)
[2019-01-05] MEDS: ATORVASTATIN CALCIUM 40 MG TABLET PO SCH (08:11)
[2019-01-05] MEDS: ASPIRIN 81 MG EC TABLET PO SCH (08:11)
[2019-01-05] MEDS: HydrALAZINE HCL 25 MG TABLET PO SCH (08:11)
[2019-01-05] MEDS: PANTOPRAZOLE SODIUM 40 MG DR TABLET PO SCH (08:11)
[2019-01-05] MEDS: CARVEDILOL 6.25 MG TABLET PO SCH (08:11)
[2019-01-05] MEDS: VITAMIN B COMPLEX WITH C TABLET PO SCH (08:12)
[2019-01-05] MEDS: ONDANSETRON HCL 4 MG/2 ML VIAL IVP PRN (09:12)
[2019-01-05 11:30] VITALS: BP 147/61
[2019-01-05] MEDS ORDERED: CARV6.2534 PO (12:05)
[2019-01-05] MEDS ORDERED: APIX2.5T PO (12:06)
[2019-01-05] MEDS ORDERED: DILT240C93 PO (12:07)
== END 2019-01-05 12:35 | disposition home or self-care (01) | DRG 291 ==
LOC: EMS 18:38 → 5S 12-31 05:30
PROVIDERS: ADMIT Internal Medicine; ATTEND Internal Medicine
PROC: 5A1D70Z Performance of Urinary Filtration, Intermittent, Less than 6 Hours Per Day (ICD-10-PCS; principal; 2019-01-01)
PROC: 5A1D70Z Performance of Urinary Filtration, Intermittent, Less than 6 Hours Per Day (ICD-10-PCS; 2019-01-02)
PROC: 5A1D70Z Performance of Urinary Filtration, Intermittent, Less than 6 Hours Per Day (ICD-10-PCS; 2019-01-03)
DX: I13.2 Hypertensive heart and chronic kidney disease with heart failure and with stage 5 chronic kidney disease, or end stage renal disease (principal); N18.6 End stage renal disease; I50.41 Acute combined systolic (congestive) and diastolic (congestive) heart failure; E46 Unspecified protein-calorie malnutrition; N25.81 Secondary hyperparathyroidism of renal origin; I48.0 Paroxysmal atrial fibrillation; Z99.2 Dependence on renal dialysis; E78.5 Hyperlipidemia, unspecified; K21.9 Gastro-esophageal reflux disease without esophagitis; D63.1 Anemia in chronic kidney disease; D69.6 Thrombocytopenia, unspecified; E11.22 Type 2 diabetes mellitus with diabetic chronic kidney disease; F32.9 Major depressive disorder, single episode, unspecified; G89.29 Other chronic pain; I25.10 Atherosclerotic heart disease of native coronary artery without angina pectoris; I34.0 Nonrheumatic mitral (valve) insufficiency; J44.9 Chronic obstructive pulmonary disease, unspecified; R13.10 Dysphagia, unspecified; Z91.11 Patient's noncompliance with dietary regimen; Z95.1 Presence of aortocoronary bypass graft; Z95.5 Presence of coronary angioplasty implant and graft; Z68.20 Body mass index [BMI] 20.0-20.9, adult
CPT/HCPCS: 83735; 87081; 87340; 92526; 92610; 93005; 93306; 97116; 97162; 97530; G0378; J0885; J1644; J2405; J3490; J7030; J7060; Q0162

== ENCOUNTER 2019-09-29 19:51 | Emergency (ER) | payer MEDICARE, OTHER ==
[~2019-09-29] VITALS: Ht 167.6 cm; Wt 54.5 kg
[~2019-09-29 19:51] MED LIST changes: +APIX2.5T PO; +ASPI-556 PO; -CARV25TA32 PO; +CARV6.2534 PO; +DILT240C93 PO; +HYDR25TA84 PO; +ISOS30TA6 PO; -RANO10003 PO; +RANO500T3 PO; +SEVE800T17 PO; -SEVEC800 PO
[2019-09-29 20:35] LABS: BASOPHILS % (AUTO) 0.5 % (0.0-2.0); EOSINOPHILS % (AUTO) 1.6 % (1.0-6.0); HEMATOCRIT 26.6 % (41-53); HEMOGLOBIN 8.6 g/dL (13.5-17.5); LYMPHOCYTES # (AUTO) 0.5 K/uL (1.0-4.8); LYMPHOCYTES % (AUTO) 10.2 % (22.0-44.0); MEAN CORPUSCULAR HEMOGLOBIN 26.7 pg (26.0-34.0); MEAN CORPUSCULAR HGB CONC 32.2 G/dL (31.0-37.0); MEAN CORPUSCULAR VOLUME 83 fL (80-100); MONOCYTES # (AUTO) 0.9 K/uL (0.1-1.0); MONOCYTES % (AUTO) 16.6 % (2.0-9.0); NEUTROPHILS # (AUTO) 3.8 K/uL (1.8-7.7); NEUTROPHILS % (AUTO) 71.1 % (40.0-70.0); PLATELET COUNT (AUTO) 162 K/uL (150-450); RED BLOOD CELL COUNT(AUTO) 3.21 MIL/uL (4.50-5.90); RED CELL DISTRIBUTION WIDTH 23.1 % (11.5-14.5)
[2019-09-29 20:47] LABS: CREATININE 2.67 mg/dL (0.60-1.30); POTASSIUM 3.8 mmol/L (3.5-5.1)
[2019-09-29 20:53] LABS: ALBUMIN 3.2 g/dL (3.4-5.0); BILIRUBIN,TOTAL 0.6 mg/dL (0.1-1.0); TOTAL PROTEIN, SERUM 7.4 g/dL (6.4-8.2)
[2019-09-29] MEDS ORDERED: LEVOFLOXACIN 500 MG TABLET PO ONE (21:30)
[2019-09-29] MEDS ORDERED: POLYETHYLENE GLYCOL 3350 17 GM PACKET PO ONE (21:30)
[2019-09-29 22:05] LABS: APPEARANCE,URINE TURBID (CLEAR); GLUCOSE, URINE (UA) 250 mg/dL (NEGATIVE); KETONES,URINE 40 mg/dL (NEGATIVE); LEUKOCYTE ESTERASE ,URINE LARGE (NEGATIVE); NITRATE,URINE POSITIVE (NEGATIVE); OCCULT BLOOD,URINE LARGE (NEGATIVE); PH,URINE 5.5 (5.0-8.0); PROTEIN,URINE SEE CONFIRM (NEGATIVE); UROBILINOGEN,URINE >=8.0 mg/dL (<=1.0)
[2019-09-29 22:11] LABS: BILIRUBIN,URINE PRELIM. POSITIVE (NEGATIVE)
[2019-09-29 22:19] LABS: SULFOSALICYLIC ACID,URINE 4+ (Negative)
[2019-09-29 22:21] LABS: RBC,URINE Full Field /HPF (0-2)
[2019-09-29 22:24] LABS: BACTERIA,URINE Moderate /HPF (None Seen)
[2019-09-29 22:25] LABS: SQUAMOUS EPITHELIAL CELL,UR Rare /LPF (None Seen)
[2019-09-29] MEDS ORDERED: CefTRIAXone 1 GM/DEXTROSE 50 ML IV ONE (23:45)
[2019-09-30 03:20] VITALS: BP 153/70
== END 2019-09-30 03:27 | disposition home or self-care (01) ==
LOC: EMS 19:54
DX: I13.11 Hypertensive heart and chronic kidney disease without heart failure, with stage 5 chronic kidney disease, or end stage renal disease (principal); E11.22 Type 2 diabetes mellitus with diabetic chronic kidney disease; N18.6 End stage renal disease; N32.89 Other specified disorders of bladder; N39.0 Urinary tract infection, site not specified; R31.9 Hematuria, unspecified; I25.10 Atherosclerotic heart disease of native coronary artery without angina pectoris; I48.91 Unspecified atrial fibrillation; Z79.899 Other long term (current) drug therapy; Z99.2 Dependence on renal dialysis; Z95.1 Presence of aortocoronary bypass graft
CPT/HCPCS: 36415; 51701; 71045; 74176; 80053; 81001; 82962; 83690; 84484; 85025; 85610; 85730; 87086; 93005; 96365; 99285; J0696; 51702

== ENCOUNTER 2019-10-07 18:16 | Inpatient (IN) | payer MEDICARE, OTHER ==
[~2019-10-07] VITALS: Ht 167.6 cm; Wt 50.0 kg
[~2019-10-07 18:16] MED LIST changes: +ALLO100T PO; +AMIO200T44 PO; +AMLO10TA7 PO; +ASPI81 PO; +ATOR40TA28 PO; +DOCU-342 PO; +INSLAN SQ; +ISOS10TA16 PO; +LEVO500 PO; +NUT.237L66 PO; +POLY17PO PO; +SEVE0.8P6 PO; +TRAZ-252 PO; +VIT1TABL81 PO
[2019-10-08] MEDS ORDERED: WATER FOR IRRIGATION,STERILE 3,000 ML IRRIG ONE (15:42)
[2019-10-08] MEDS ORDERED: SODIUM CL IRRIG SOLN BAG 3,000 ML IRRIG ONE (16:34)
[2019-10-13] MEDS ORDERED: METO25 PO ×2 (14:48→14:50)
[2019-10-13] MEDS ORDERED: NTP TD (14:51)
[2019-10-13] MEDS ORDERED: ACET-2247 PO (14:53)
[2019-10-13] MEDS ORDERED: INSU100V SQ (15:09)
[2019-10-13 16:20] VITALS: BP 128/62
[2019-10-13] MEDS ORDERED: INSULIN LISPRO 100 UNITS/ML SQ PRN (18:00)
[2019-10-13] MEDS ORDERED: GLUCAGON,HUMAN RECOMBINANT 1 MG VIAL IM PRN (18:00)
[2019-10-13] MEDS ORDERED: DEXTROSE 50%-WATER 25 GM/50 ML SYRINGE IVP PRN (18:15)
[2019-10-13] MEDS ORDERED: HYDROCODONE/ACETAMINOPHEN 5-325 MG TABLET PO PRN (19:30)
[2019-10-13] MEDS ORDERED: HYDROCODONE/ACETAMINOPHEN 10-325 MG TABLET PO PRN (19:30)
[2019-10-13] MEDS: OXYGEN THERAPY IH SCH (20:00)
[2019-10-13] MEDS: METOPROLOL TARTRATE 25 MG TABLET PO SCH ×2 (20:59→21:00)
[2019-10-13] MEDS: PANTOPRAZOLE SODIUM 40 MG DR TABLET PO SCH (20:59)
[2019-10-13] MEDS: ATORVASTATIN CALCIUM 40 MG TABLET PO SCH (20:59)
[2019-10-13] MEDS: DOCUSATE SODIUM 100 MG CAPSULE PO SCH (20:59)
[2019-10-13] MEDS: HydrALAZINE HCL 25 MG TABLET PO SCH (20:59)
[2019-10-13] MEDS: SENNA 187 MG TABLET PO SCH (20:59)
[2019-10-13] MEDS: RANOLAZINE 500 MG ER TABLET PO SCH (20:59)
[2019-10-13] MEDS: ISOSORBIDE DINITRATE 10 MG TABLET PO SCH (20:59)
[2019-10-13 21:00] VITALS: BP 119/81
[2019-10-13] MEDS: NITROGLYCERIN 2% (1 GM=INCH) PACKET TP SCH (21:02)
[2019-10-13] MEDS: TraZODone HCL 50 MG TABLET PO SCH (21:08)
[2019-10-13] MEDS: INSULIN LISPRO 100 UNITS/ML SQ PRN (21:10)
[2019-10-13] MEDS: INSULIN GLARGINE,HUM.REC.ANLOG 100 UNITS/ML SQ SCH (21:11)
[2019-10-13] MEDS: 0.9% SODIUM CHLORIDE 10 ML SYRINGE IVP SCH (23:57)
[2019-10-14] VITALS: BP 123/59
[2019-10-14] MEDS: ACETAMINOPHEN 325 MG TABLET PO PRN (02:46)
[2019-10-14 05:00] VITALS: BP 156/84
[2019-10-14] MEDS: NITROGLYCERIN 2% (1 GM=INCH) PACKET TP SCH ×3 (05:07→22:11)
[2019-10-14 06:43] LABS: GLUCOMETER DEV NAME(LOC) 2WR.2; GLUCOSE,POINT OF CARE 126 MG/DL (70-110)
[2019-10-14] MEDS ORDERED: SEVELAMER CARBONATE 800 MG TABLET PO SCH ×2 (07:30)
[2019-10-14 07:55] LABS: BASOPHILS % (AUTO) 0.2 % (0.0-2.0); EOSINOPHILS % (AUTO) 1.5 % (1.0-6.0); HEMATOCRIT 24.2 % (41-53); HEMOGLOBIN 8.4 g/dL (13.5-17.5); LYMPHOCYTES # (AUTO) 0.7 K/uL (1.0-4.8); LYMPHOCYTES % (AUTO) 5.6 % (22.0-44.0); MEAN CORPUSCULAR HGB CONC 34.7 G/dL (31.0-37.0); MEAN CORPUSCULAR VOLUME 86 fL (80-100); MONOCYTES # (AUTO) 1.2 K/uL (0.1-1.0); MONOCYTES % (AUTO) 10.5 % (2.0-9.0); NEUTROPHILS # (AUTO) 9.8 K/uL (1.8-7.7); NEUTROPHILS % (AUTO) 82.2 % (40.0-70.0); PLATELET COUNT (AUTO) 233 K/uL (150-450); RED CELL DISTRIBUTION WIDTH 17.6 % (11.5-14.5)
[2019-10-14] MEDS: OXYGEN THERAPY IH SCH ×2 (07:57→20:00)
[2019-10-14 08:22] LABS: ALBUMIN 2.1 g/dL (3.4-5.0); BILIRUBIN,TOTAL 0.4 mg/dL (0.1-1.0); CALCIUM, TOTAL 8.2 mg/dL (8.8-10.5); CREATININE 4.59 mg/dL (0.60-1.30); POTASSIUM 4.8 mmol/L (3.5-5.1); TOTAL PROTEIN, SERUM 5.8 g/dL (6.4-8.2)
[2019-10-14] MEDS: 0.9% SODIUM CHLORIDE 10 ML SYRINGE IVP SCH ×2 (09:20→17:35)
[2019-10-14] MEDS: POLYETHYLENE GLYCOL 3350 17 GM PACKET PO SCH (09:21)
[2019-10-14] MEDS: PANTOPRAZOLE SODIUM 40 MG DR TABLET PO SCH ×2 (09:22→20:26)
[2019-10-14] MEDS: DOCUSATE SODIUM 100 MG CAPSULE PO SCH ×2 (09:22→20:26)
[2019-10-14] MEDS: RANOLAZINE 500 MG ER TABLET PO SCH ×2 (09:22→20:26)
[2019-10-14 09:42] VITALS: BP 135/63
[2019-10-14] MEDS: AMIODARONE HCL 200 MG TABLET PO SCH (11:20)
[2019-10-14] MEDS: ISOSORBIDE DINITRATE 10 MG TABLET PO SCH ×3 (11:21→20:26)
[2019-10-14] MEDS: METOPROLOL TARTRATE 25 MG TABLET PO SCH ×2 (11:21→20:26)
[2019-10-14 12:11] LABS: GLUCOMETER DEV NAME(LOC) 2WR.2; GLUCOSE,POINT OF CARE 123 MG/DL (70-110)
[2019-10-14] MEDS: AmLODIPine BESYLATE 10 MG TABLET PO SCH (12:21)
[2019-10-14] MEDS: HydrALAZINE HCL 25 MG TABLET PO SCH ×2 (12:21→20:26)
[2019-10-14] MEDS: SEVELAMER CARBONATE 800 MG POWDER PACKET PO SCH ×3 (12:50→20:26)
[2019-10-14 15:45] VITALS: BP 122/56
[2019-10-14] MEDS: INSULIN LISPRO 100 UNITS/ML SQ PRN (18:36)
[2019-10-14 18:38] LABS: GLUCOMETER DEV NAME(LOC) 2WR.1B; GLUCOSE,POINT OF CARE 152 MG/DL (70-110)
[2019-10-14] MEDS: ATORVASTATIN CALCIUM 40 MG TABLET PO SCH (20:26)
[2019-10-14] MEDS: SENNA 187 MG TABLET PO SCH (20:26)
[2019-10-14] MEDS: TraZODone HCL 50 MG TABLET PO SCH (20:26)
[2019-10-14] MEDS: INSULIN GLARGINE,HUM.REC.ANLOG 100 UNITS/ML SQ SCH (20:35)
[2019-10-14 21:04] LABS: GLUCOMETER DEV NAME(LOC) 2WR.2; GLUCOSE,POINT OF CARE 89 MG/DL (70-110)
[2019-10-15] MEDS: MELATONIN 3 MG TABLET PO PRN
[2019-10-15 00:42] VITALS: BP 135/63
[2019-10-15] MEDS: NITROGLYCERIN 2% (1 GM=INCH) PACKET TP SCH ×3 (05:48→21:28)
[2019-10-15 06:14] LABS: GLUCOMETER DEV NAME(LOC) 2WR.2; GLUCOSE,POINT OF CARE 131 MG/DL (70-110)
[2019-10-15 07:41] VITALS: BP 142/65
[2019-10-15] MEDS: OXYGEN THERAPY IH SCH ×2 (08:00→20:00)
[2019-10-15] MEDS: SEVELAMER CARBONATE 800 MG POWDER PACKET PO SCH ×3 (08:08→19:14)
[2019-10-15] MEDS: DOCUSATE SODIUM 100 MG CAPSULE PO SCH ×2 (08:09→21:27)
[2019-10-15] MEDS: RANOLAZINE 500 MG ER TABLET PO SCH ×2 (08:10→21:27)
[2019-10-15] MEDS: PANTOPRAZOLE SODIUM 40 MG DR TABLET PO SCH ×2 (08:10→21:27)
[2019-10-15] MEDS: VITAMIN B COMPLEX WITH C TABLET PO SCH (08:10)
[2019-10-15] MEDS: POLYETHYLENE GLYCOL 3350 17 GM PACKET PO SCH (08:17)
[2019-10-15] MEDS: METOPROLOL TARTRATE 25 MG TABLET PO SCH ×2 (09:00→21:28)
[2019-10-15] MEDS: HydrALAZINE HCL 25 MG TABLET PO SCH ×2 (09:00→21:28)
[2019-10-15] MEDS: ISOSORBIDE DINITRATE 10 MG TABLET PO SCH ×3 (09:00→21:27)
[2019-10-15] MEDS: AmLODIPine BESYLATE 10 MG TABLET PO SCH (09:00)
[2019-10-15] MEDS ORDERED: LEVOFLOXACIN 250 MG TABLET PO SCH (09:00)
[2019-10-15] MEDS: AMIODARONE HCL 200 MG TABLET PO SCH (09:00)
[2019-10-15 12:32] LABS: GLUCOMETER DEV NAME(LOC) 2WR.2; GLUCOSE,POINT OF CARE 126 MG/DL (70-110)
[2019-10-15 19:32] VITALS: BP 142/72
[2019-10-15 20:08] LABS: GLUCOMETER DEV NAME(LOC) 2WR.2; GLUCOSE,POINT OF CARE 87 MG/DL (70-110)
[2019-10-15] MEDS: SENNA 187 MG TABLET PO SCH (21:27)
[2019-10-15] MEDS: ATORVASTATIN CALCIUM 40 MG TABLET PO SCH (21:28)
[2019-10-15] MEDS: TraZODone HCL 50 MG TABLET PO SCH (21:28)
[2019-10-15] MEDS: INSULIN GLARGINE,HUM.REC.ANLOG 100 UNITS/ML SQ SCH (21:36)
[2019-10-15] MEDS: INSULIN LISPRO 100 UNITS/ML SQ PRN (21:37)
[2019-10-16 05:30] LABS: GLUCOMETER DEV NAME(LOC) 2WR.1B; GLUCOSE,POINT OF CARE 193 MG/DL (70-110)
[2019-10-16] MEDS: NITROGLYCERIN 2% (1 GM=INCH) PACKET TP SCH ×3 (05:49→22:39)
[2019-10-16 05:50] VITALS: BP 137/73
[2019-10-16 06:04] LABS: GLUCOMETER DEV NAME(LOC) 2WR.2; GLUCOSE,POINT OF CARE 114 MG/DL (70-110)
[2019-10-16 07:11] LABS: BASOPHILS % (AUTO) 0.2 % (0.0-2.0); EOSINOPHILS % (AUTO) 1.6 % (1.0-6.0); HEMATOCRIT 23.2 % (41-53); HEMOGLOBIN 7.9 g/dL (13.5-17.5); LYMPHOCYTES # (AUTO) 0.4 K/uL (1.0-4.8); LYMPHOCYTES % (AUTO) 4.1 % (22.0-44.0); MEAN CORPUSCULAR HEMOGLOBIN 29.7 pg (26.0-34.0); MEAN CORPUSCULAR HGB CONC 34.1 G/dL (31.0-37.0); MEAN CORPUSCULAR VOLUME 87 fL (80-100); MONOCYTES # (AUTO) 1.1 K/uL (0.1-1.0); MONOCYTES % (AUTO) 11.3 % (2.0-9.0); NEUTROPHILS # (AUTO) 7.8 K/uL (1.8-7.7); NEUTROPHILS % (AUTO) 82.8 % (40.0-70.0); PLATELET COUNT (AUTO) 236 K/uL (150-450); RED BLOOD CELL COUNT(AUTO) 2.66 MIL/uL (4.50-5.90); RED CELL DISTRIBUTION WIDTH 18.4 % (11.5-14.5)
[2019-10-16 07:21] VITALS: BP 124/59
[2019-10-16 07:31] LABS: ALBUMIN 2.2 g/dL (3.4-5.0); BILIRUBIN,TOTAL 0.4 mg/dL (0.1-1.0); CALCIUM, TOTAL 8.4 mg/dL (8.8-10.5); CREATININE 3.74 mg/dL (0.60-1.30); MAGNESIUM 1.9 mg/dL (1.80-2.40); POTASSIUM 4.8 mmol/L (3.5-5.1); TOTAL PROTEIN, SERUM 5.7 g/dL (6.4-8.2)
[2019-10-16] MEDS: PANTOPRAZOLE SODIUM 40 MG DR TABLET PO SCH ×2 (07:37→20:51)
[2019-10-16] MEDS: ISOSORBIDE DINITRATE 10 MG TABLET PO SCH ×3 (07:37→20:52)
[2019-10-16] MEDS: OXYGEN THERAPY IH SCH ×2 (07:37→21:02)
[2019-10-16] MEDS: DOCUSATE SODIUM 100 MG CAPSULE PO SCH ×2 (07:37→20:52)
[2019-10-16] MEDS: RANOLAZINE 500 MG ER TABLET PO SCH ×2 (07:37→20:51)
[2019-10-16] MEDS: POLYETHYLENE GLYCOL 3350 17 GM PACKET PO SCH (07:37)
[2019-10-16] MEDS: VITAMIN B COMPLEX WITH C TABLET PO SCH (07:37)
[2019-10-16] MEDS: AMIODARONE HCL 200 MG TABLET PO SCH (07:37)
[2019-10-16] MEDS: SEVELAMER CARBONATE 800 MG POWDER PACKET PO SCH ×3 (07:37→16:51)
[2019-10-16] MEDS: METOPROLOL TARTRATE 25 MG TABLET PO SCH ×2 (07:37→20:52)
[2019-10-16] MEDS: HydrALAZINE HCL 25 MG TABLET PO SCH ×2 (07:37→20:52)
[2019-10-16] MEDS: AmLODIPine BESYLATE 10 MG TABLET PO SCH (07:37)
[2019-10-16 13:55] VITALS: BP 134/63
[2019-10-16] MEDS: EPOETIN ALFA 10,000 UNITS/ML 2 ML VIAL SQ SCH (13:57)
[2019-10-16 15:28] VITALS: BP 124/59
[2019-10-16] MEDS: SENNA 187 MG TABLET PO SCH (20:51)
[2019-10-16] MEDS: BENZONATATE 100 MG CAPSULE PO SCH (20:51)
[2019-10-16] MEDS: ATORVASTATIN CALCIUM 40 MG TABLET PO SCH (20:52)
[2019-10-16] MEDS: TraZODone HCL 50 MG TABLET PO SCH (20:52)
[2019-10-16] MEDS: INSULIN GLARGINE,HUM.REC.ANLOG 100 UNITS/ML SQ SCH (21:01)
[2019-10-16] MEDS: INSULIN LISPRO 100 UNITS/ML SQ PRN (21:02)
[2019-10-16 22:19] LABS: GLUCOMETER DEV NAME(LOC) 2WR.1B; GLUCOSE,POINT OF CARE 163 MG/DL (70-110)
[2019-10-16 22:19] LABS: GLUCOMETER DEV NAME(LOC) 2WR.1B; GLUCOSE,POINT OF CARE 124 MG/DL (70-110)
[2019-10-16] MEDS: MELATONIN 3 MG TABLET PO PRN (23:24)
[2019-10-17] VITALS: BP 137/74
[2019-10-17 01:24] LABS: GLUCOMETER DEV NAME(LOC) 2WR.2; GLUCOSE,POINT OF CARE 125 MG/DL (70-110)
[2019-10-17] MEDS: NITROGLYCERIN 2% (1 GM=INCH) PACKET TP SCH ×3 (05:34→21:09)
[2019-10-17 05:40] VITALS: BP 111/56
[2019-10-17 05:47] LABS: GLUCOMETER DEV NAME(LOC) 2WR.2; GLUCOSE,POINT OF CARE 98 MG/DL (70-110)
[2019-10-17 07:44] LABS: BASOPHILS % (AUTO) 0.4 % (0.0-2.0); EOSINOPHILS % (AUTO) 1.4 % (1.0-6.0); HEMATOCRIT 23.5 % (41-53); LYMPHOCYTES # (AUTO) 0.7 K/uL (1.0-4.8); LYMPHOCYTES % (AUTO) 7.4 % (22.0-44.0); MEAN CORPUSCULAR HEMOGLOBIN 29.4 pg (26.0-34.0); MEAN CORPUSCULAR HGB CONC 33.9 G/dL (31.0-37.0); MEAN CORPUSCULAR VOLUME 87 fL (80-100); MONOCYTES # (AUTO) 1.4 K/uL (0.1-1.0); MONOCYTES % (AUTO) 14.7 % (2.0-9.0); NEUTROPHILS # (AUTO) 7.3 K/uL (1.8-7.7); NEUTROPHILS % (AUTO) 76.1 % (40.0-70.0); PLATELET COUNT (AUTO) 224 K/uL (150-450); RED BLOOD CELL COUNT(AUTO) 2.71 MIL/uL (4.50-5.90); RED CELL DISTRIBUTION WIDTH 18.7 % (11.5-14.5)
[2019-10-17 07:45] VITALS: BP 84/42
[2019-10-17 07:59] LABS: ALBUMIN 2.2 g/dL (3.4-5.0); BILIRUBIN,TOTAL 0.4 mg/dL (0.1-1.0); CALCIUM, TOTAL 8.4 mg/dL (8.8-10.5); CREATININE 5.86 mg/dL (0.60-1.30); MAGNESIUM 2.2 mg/dL (1.80-2.40); TOTAL PROTEIN, SERUM 5.5 g/dL (6.4-8.2)
[2019-10-17 08:00] VITALS: BP 107/56
[2019-10-17] MEDS: SEVELAMER CARBONATE 800 MG POWDER PACKET PO SCH ×3 (08:00→16:59)
[2019-10-17] MEDS: VITAMIN B COMPLEX WITH C TABLET PO SCH (08:01)
[2019-10-17] MEDS: OXYGEN THERAPY IH SCH ×2 (08:01→20:51)
[2019-10-17] MEDS: AMIODARONE HCL 200 MG TABLET PO SCH (08:02)
[2019-10-17] MEDS: PANTOPRAZOLE SODIUM 40 MG DR TABLET PO SCH ×2 (08:02→20:52)
[2019-10-17] MEDS: BENZONATATE 100 MG CAPSULE PO SCH ×2 (08:02→20:52)
[2019-10-17] MEDS: DOCUSATE SODIUM 100 MG CAPSULE PO SCH ×2 (08:02→20:52)
[2019-10-17] MEDS: RANOLAZINE 500 MG ER TABLET PO SCH ×2 (08:02→20:52)
[2019-10-17] MEDS: POLYETHYLENE GLYCOL 3350 17 GM PACKET PO SCH (08:03)
[2019-10-17 08:05] LABS: POTASSIUM 5.8 mmol/L (3.5-5.1)
[2019-10-17] MEDS: HydrALAZINE HCL 25 MG TABLET PO SCH ×2 (10:05→21:05)
[2019-10-17] MEDS: ISOSORBIDE DINITRATE 10 MG TABLET PO SCH ×3 (10:06→21:03)
[2019-10-17] MEDS: METOPROLOL TARTRATE 25 MG TABLET PO SCH ×2 (10:06→21:04)
[2019-10-17] MEDS: AmLODIPine BESYLATE 10 MG TABLET PO SCH (10:06)
[2019-10-17] MEDS ORDERED: SODIUM ZIRCONIUM CYCLOSILICATE 5 GM POWDER PACKET PO ONE (11:00)
[2019-10-17] MEDS: INSULIN LISPRO 100 UNITS/ML SQ PRN (12:41)
[2019-10-17 14:40] VITALS: BP 135/51
[2019-10-17 16:00] VITALS: BP 124/61
[2019-10-17] MEDS: ATORVASTATIN CALCIUM 40 MG TABLET PO SCH (20:51)
[2019-10-17] MEDS: TraZODone HCL 50 MG TABLET PO SCH (20:52)
[2019-10-17] MEDS: SENNA 187 MG TABLET PO SCH (20:52)
[2019-10-17] MEDS: INSULIN GLARGINE,HUM.REC.ANLOG 100 UNITS/ML SQ SCH (21:09)
[2019-10-17] MEDS: MELATONIN 3 MG TABLET PO PRN (22:09)
[2019-10-18] VITALS: BP 116/59
[2019-10-18 01:32] LABS: GLUCOMETER DEV NAME(LOC) 2WR.2; GLUCOSE,POINT OF CARE 92 MG/DL (70-110)
[2019-10-18 01:32] LABS: GLUCOMETER DEV NAME(LOC) 2WR.2; GLUCOSE,POINT OF CARE 131 MG/DL (70-110)
[2019-10-18 02:41] LABS: GLUCOMETER DEV NAME(LOC) 2WR.1B; GLUCOSE,POINT OF CARE 166 MG/DL (70-110)
[2019-10-18 05:59] LABS: GLUCOMETER DEV NAME(LOC) 2WR.1B; GLUCOSE,POINT OF CARE 120 MG/DL (70-110)
[2019-10-18] MEDS: NITROGLYCERIN 2% (1 GM=INCH) PACKET TP SCH ×3 (06:05→22:00)
[2019-10-18] MEDS: SEVELAMER CARBONATE 800 MG POWDER PACKET PO SCH ×3 (07:21→19:55)
[2019-10-18 07:22] LABS: BASOPHILS % (AUTO) 0.3 % (0.0-2.0); EOSINOPHILS % (AUTO) 1.5 % (1.0-6.0); HEMATOCRIT 22.6 % (41-53); HEMOGLOBIN 7.7 g/dL (13.5-17.5); LYMPHOCYTES # (AUTO) 0.5 K/uL (1.0-4.8); LYMPHOCYTES % (AUTO) 5.2 % (22.0-44.0); MEAN CORPUSCULAR HEMOGLOBIN 29.4 pg (26.0-34.0); MEAN CORPUSCULAR VOLUME 86 fL (80-100); MONOCYTES # (AUTO) 1.4 K/uL (0.1-1.0); MONOCYTES % (AUTO) 13.3 % (2.0-9.0); NEUTROPHILS # (AUTO) 8.2 K/uL (1.8-7.7); NEUTROPHILS % (AUTO) 79.7 % (40.0-70.0); PLATELET COUNT (AUTO) 235 K/uL (150-450); RED BLOOD CELL COUNT(AUTO) 2.62 MIL/uL (4.50-5.90); RED CELL DISTRIBUTION WIDTH 18.2 % (11.5-14.5)
[2019-10-18 07:45] LABS: ALBUMIN 2.4 g/dL (3.4-5.0); BILIRUBIN,TOTAL 0.4 mg/dL (0.1-1.0); CALCIUM, TOTAL 8.4 mg/dL (8.8-10.5); CREATININE 7.33 mg/dL (0.60-1.30); POTASSIUM 5.9 mmol/L (3.5-5.1); TOTAL PROTEIN, SERUM 6.3 g/dL (6.4-8.2)
[2019-10-18 08:12] VITALS: BP 110/51
[2019-10-18] MEDS: HydrALAZINE HCL 25 MG TABLET PO SCH ×2 (09:00→19:56)
[2019-10-18] MEDS: METOPROLOL TARTRATE 25 MG TABLET PO SCH ×2 (09:00→19:55)
[2019-10-18] MEDS: AmLODIPine BESYLATE 10 MG TABLET PO SCH (09:00)
[2019-10-18] MEDS: OXYGEN THERAPY IH SCH ×2 (09:39→19:55)
[2019-10-18] MEDS: DOCUSATE SODIUM 100 MG CAPSULE PO SCH ×2 (09:42→19:54)
[2019-10-18] MEDS: AMIODARONE HCL 200 MG TABLET PO SCH (09:42)
[2019-10-18] MEDS: PANTOPRAZOLE SODIUM 40 MG DR TABLET PO SCH ×2 (09:42→19:56)
[2019-10-18] MEDS: RANOLAZINE 500 MG ER TABLET PO SCH ×2 (09:42→19:55)
[2019-10-18] MEDS: VITAMIN B COMPLEX WITH C TABLET PO SCH (09:42)
[2019-10-18] MEDS: POLYETHYLENE GLYCOL 3350 17 GM PACKET PO SCH (09:42)
[2019-10-18] MEDS: ISOSORBIDE DINITRATE 10 MG TABLET PO SCH ×3 (09:42→19:55)
[2019-10-18] MEDS: BENZONATATE 100 MG CAPSULE PO SCH ×2 (09:42→19:55)
[2019-10-18] MEDS: EPOETIN ALFA 10,000 UNITS/ML 2 ML VIAL SQ SCH (09:43)
[2019-10-18] MEDS: INSULIN LISPRO 100 UNITS/ML SQ PRN (12:17)
[2019-10-18 12:28] LABS: GLUCOMETER DEV NAME(LOC) 2WR.2; GLUCOSE,POINT OF CARE 152 MG/DL (70-110)
[2019-10-18] MEDS ORDERED: SODIUM CHLORIDE 0.9% 1,000 ML ONE (14:01)
[2019-10-18 15:00] VITALS: BP 118/58
[2019-10-18 19:45] VITALS: BP 131/57
[2019-10-18] MEDS: TraZODone HCL 50 MG TABLET PO SCH (19:54)
[2019-10-18] MEDS: SENNA 187 MG TABLET PO SCH (19:54)
[2019-10-18] MEDS: ATORVASTATIN CALCIUM 40 MG TABLET PO SCH (19:55)
[2019-10-18] MEDS: INSULIN GLARGINE,HUM.REC.ANLOG 100 UNITS/ML SQ SCH (20:03)
[2019-10-18 21:09] LABS: GLUCOMETER DEV NAME(LOC) 2WR.2; GLUCOSE,POINT OF CARE 74 MG/DL (70-110)
[2019-10-18 23:30] VITALS: BP 113/56
[2019-10-18] MEDS: MELATONIN 3 MG TABLET PO PRN (23:30)
[2019-10-19 05:59] VITALS: BP 110/45
[2019-10-19] MEDS: NITROGLYCERIN 2% (1 GM=INCH) PACKET TP SCH ×2 (06:00→14:45)
[2019-10-19 06:15] LABS: GLUCOMETER DEV NAME(LOC) 2WR.1B; GLUCOSE,POINT OF CARE 92 MG/DL (70-110)
[2019-10-19 07:06] LABS: BASOPHILS % (AUTO) 0.5 % (0.0-2.0); HEMATOCRIT 22.2 % (41-53); HEMOGLOBIN 7.5 g/dL (13.5-17.5); LYMPHOCYTES # (AUTO) 0.4 K/uL (1.0-4.8); LYMPHOCYTES % (AUTO) 5.7 % (22.0-44.0); MEAN CORPUSCULAR HEMOGLOBIN 29.4 pg (26.0-34.0); MEAN CORPUSCULAR HGB CONC 33.8 G/dL (31.0-37.0); MEAN CORPUSCULAR VOLUME 87 fL (80-100); MONOCYTES # (AUTO) 1.3 K/uL (0.1-1.0); MONOCYTES % (AUTO) 17.3 % (2.0-9.0); NEUTROPHILS # (AUTO) 5.7 K/uL (1.8-7.7); NEUTROPHILS % (AUTO) 74.5 % (40.0-70.0); PLATELET COUNT (AUTO) 213 K/uL (150-450); RED BLOOD CELL COUNT(AUTO) 2.56 MIL/uL (4.50-5.90); RED CELL DISTRIBUTION WIDTH 18.7 % (11.5-14.5)
[2019-10-19 07:13] LABS: CALCIUM, TOTAL 7.8 mg/dL (8.8-10.5); CREATININE 4.44 mg/dL (0.60-1.30); POTASSIUM 5.1 mmol/L (3.5-5.1)
[2019-10-19 08:00] VITALS: BP 140/66
[2019-10-19] MEDS: OXYGEN THERAPY IH SCH ×2 (09:17→20:00)
[2019-10-19] MEDS: SEVELAMER CARBONATE 800 MG POWDER PACKET PO SCH ×3 (09:17→16:49)
[2019-10-19] MEDS: POLYETHYLENE GLYCOL 3350 17 GM PACKET PO SCH (09:18)
[2019-10-19] MEDS: AMIODARONE HCL 200 MG TABLET PO SCH (09:20)
[2019-10-19] MEDS: AmLODIPine BESYLATE 10 MG TABLET PO SCH (09:20)
[2019-10-19] MEDS: RANOLAZINE 500 MG ER TABLET PO SCH ×2 (09:20→20:10)
[2019-10-19] MEDS: VITAMIN B COMPLEX WITH C TABLET PO SCH (09:20)
[2019-10-19] MEDS: BENZONATATE 100 MG CAPSULE PO SCH (09:21)
[2019-10-19] MEDS: HydrALAZINE HCL 25 MG TABLET PO SCH ×2 (09:21→20:10)
[2019-10-19] MEDS: DOCUSATE SODIUM 100 MG CAPSULE PO SCH ×2 (09:21→20:10)
[2019-10-19] MEDS: PANTOPRAZOLE SODIUM 40 MG DR TABLET PO SCH ×2 (09:21→20:10)
[2019-10-19] MEDS: METOPROLOL TARTRATE 25 MG TABLET PO SCH ×2 (09:21→20:10)
[2019-10-19] MEDS: ISOSORBIDE DINITRATE 10 MG TABLET PO SCH ×3 (09:21→20:10)
[2019-10-19] MEDS: INSULIN LISPRO 100 UNITS/ML SQ PRN ×2 (12:26→20:18)
[2019-10-19 13:37] LABS: GLUCOMETER DEV NAME(LOC) 2WR.2; GLUCOSE,POINT OF CARE 156 MG/DL (70-110)
[2019-10-19 14:40] VITALS: BP 124/59
[2019-10-19 15:49] VITALS: BP 114/63
[2019-10-19] MEDS: SENNA 187 MG TABLET PO SCH (20:10)
[2019-10-19] MEDS: ATORVASTATIN CALCIUM 40 MG TABLET PO SCH (20:10)
[2019-10-19] MEDS: MELATONIN 3 MG TABLET PO PRN (20:10)
[2019-10-19] MEDS: TraZODone HCL 50 MG TABLET PO SCH (20:10)
[2019-10-19] MEDS: INSULIN GLARGINE,HUM.REC.ANLOG 100 UNITS/ML SQ SCH (20:18)
[2019-10-19 22:02] LABS: GLUCOMETER DEV NAME(LOC) 2WR.2; GLUCOSE,POINT OF CARE 135 MG/DL (70-110)
[2019-10-19 22:02] LABS: GLUCOMETER DEV NAME(LOC) 2WR.2; GLUCOSE,POINT OF CARE 183 MG/DL (70-110)
[2019-10-19 23:30] VITALS: BP 113/53
[2019-10-20] MEDS: ACETAMINOPHEN 325 MG TABLET PO PRN (02:06)
[2019-10-20] MEDS ORDERED: B CO PO (04:29)
[2019-10-20] MEDS ORDERED: DOCU-275 PO (04:29)
[2019-10-20] MEDS ORDERED: ATOR40TA28 PO (04:29)
[2019-10-20] MEDS ORDERED: ISOS10TA16 PO (04:29)
[2019-10-20] MEDS ORDERED: NTP TD (04:37)
[2019-10-20] MEDS ORDERED: INSLAN SQ (04:37)
[2019-10-20] MEDS ORDERED: AMIO200T44 PO (04:37)
[2019-10-20] MEDS ORDERED: POLY17PO PO (04:37)
[2019-10-20] MEDS ORDERED: AMLO10TA7 PO (04:37)
[2019-10-20] MEDS ORDERED: METO25 PO (04:37)
[2019-10-20] MEDS ORDERED: INSU100V SQ (04:45)
[2019-10-20] MEDS ORDERED: TRAZ-252 PO (04:45)
[2019-10-20] MEDS ORDERED: ACET-2247 PO (05:22)
[2019-10-20] MEDS ORDERED: MELA3TAB66 PO (05:22)
[2019-10-20 05:58] VITALS: BP 98/53
[2019-10-20] MEDS: NITROGLYCERIN 2% (1 GM=INCH) PACKET TP SCH ×3 (06:00→20:57)
[2019-10-20 07:20] VITALS: BP 93/41
[2019-10-20] MEDS: SEVELAMER CARBONATE 800 MG POWDER PACKET PO SCH ×3 (07:42→17:00)
[2019-10-20] MEDS: HydrALAZINE HCL 25 MG TABLET PO SCH (09:00)
[2019-10-20] MEDS: AmLODIPine BESYLATE 10 MG TABLET PO SCH (09:00)
[2019-10-20] MEDS: METOPROLOL TARTRATE 25 MG TABLET PO SCH ×2 (09:00→20:56)
[2019-10-20] MEDS: OXYGEN THERAPY IH SCH ×2 (09:05→20:00)
[2019-10-20] MEDS: PANTOPRAZOLE SODIUM 40 MG DR TABLET PO SCH ×2 (09:06→20:56)
[2019-10-20] MEDS: DOCUSATE SODIUM 100 MG CAPSULE PO SCH ×2 (09:06→20:57)
[2019-10-20] MEDS: AMIODARONE HCL 200 MG TABLET PO SCH (09:06)
[2019-10-20] MEDS: RANOLAZINE 500 MG ER TABLET PO SCH ×2 (09:06→20:56)
[2019-10-20] MEDS: POLYETHYLENE GLYCOL 3350 17 GM PACKET PO SCH (09:06)
[2019-10-20] MEDS: ISOSORBIDE DINITRATE 10 MG TABLET PO SCH ×3 (09:06→20:56)
[2019-10-20] MEDS: VITAMIN B COMPLEX WITH C TABLET PO SCH (09:06)
[2019-10-20 11:51] LABS: BASOPHILS % (AUTO) 0.2 % (0.0-2.0); EOSINOPHILS % (AUTO) 2.4 % (1.0-6.0); HEMATOCRIT 26.3 % (41-53); HEMOGLOBIN 8.5 g/dL (13.5-17.5); LYMPHOCYTES # (AUTO) 0.6 K/uL (1.0-4.8); LYMPHOCYTES % (AUTO) 6.8 % (22.0-44.0); MEAN CORPUSCULAR HEMOGLOBIN 28.5 pg (26.0-34.0); MEAN CORPUSCULAR HGB CONC 32.4 G/dL (31.0-37.0); MEAN CORPUSCULAR VOLUME 88 fL (80-100); MONOCYTES # (AUTO) 1.4 K/uL (0.1-1.0); MONOCYTES % (AUTO) 15.7 % (2.0-9.0); NEUTROPHILS # (AUTO) 6.5 K/uL (1.8-7.7); NEUTROPHILS % (AUTO) 74.9 % (40.0-70.0); PLATELET COUNT (AUTO) 266 K/uL (150-450); RED BLOOD CELL COUNT(AUTO) 2.99 MIL/uL (4.50-5.90)
[2019-10-20] MEDS: INSULIN LISPRO 100 UNITS/ML SQ PRN (11:55)
[2019-10-20 12:41] LABS: GLUCOMETER DEV NAME(LOC) 2WR.2; GLUCOSE,POINT OF CARE 144 MG/DL (70-110)
[2019-10-20 12:45] LABS: GLUCOMETER DEV NAME(LOC) 2WR.1B; GLUCOSE,POINT OF CARE 156 MG/DL (70-110)
[2019-10-20] MEDS ORDERED: SODIUM CHLORIDE 0.9% 1,000 ML ONE (13:58)
[2019-10-20 15:30] VITALS: BP 123/66
[2019-10-20 17:16] LABS: GLUCOMETER DEV NAME(LOC) 2WR.2; GLUCOSE,POINT OF CARE 119 MG/DL (70-110)
[2019-10-20 20:54] VITALS: BP 152/77
[2019-10-20] MEDS: SENNA 187 MG TABLET PO SCH (20:57)
[2019-10-20] MEDS: ATORVASTATIN CALCIUM 40 MG TABLET PO SCH (20:57)
[2019-10-20] MEDS: TraZODone HCL 50 MG TABLET PO SCH (20:57)
[2019-10-20] MEDS: INSULIN GLARGINE,HUM.REC.ANLOG 100 UNITS/ML SQ SCH (21:00)
[2019-10-20 21:04] LABS: GLUCOMETER DEV NAME(LOC) 2WR.2; GLUCOSE,POINT OF CARE 98 MG/DL (70-110)
[2019-10-21] VITALS: BP 136/60
[2019-10-21] MEDS: MELATONIN 3 MG TABLET PO PRN (00:07)
[2019-10-21] MEDS ORDERED: AMLO5TAB9 PO (03:57)
[2019-10-21] MEDS ORDERED: SEVE0.8P6 PO (04:02)
[2019-10-21 06:00] VITALS: BP 126/60
[2019-10-21] MEDS: NITROGLYCERIN 2% (1 GM=INCH) PACKET TP SCH ×2 (06:02→14:33)
[2019-10-21 06:20] LABS: GLUCOMETER DEV NAME(LOC) PVLAB.8; GLUCOSE,POINT OF CARE 126 MG/DL (70-110)
[2019-10-21 06:43] LABS: BASOPHILS % (AUTO) 0.3 % (0.0-2.0); EOSINOPHILS % (AUTO) 3.1 % (1.0-6.0); HEMATOCRIT 27.9 % (41-53); HEMOGLOBIN 9.3 g/dL (13.5-17.5); LYMPHOCYTES # (AUTO) 0.4 K/uL (1.0-4.8); LYMPHOCYTES % (AUTO) 5.2 % (22.0-44.0); MEAN CORPUSCULAR HEMOGLOBIN 29.6 pg (26.0-34.0); MEAN CORPUSCULAR HGB CONC 33.5 G/dL (31.0-37.0); MEAN CORPUSCULAR VOLUME 88 fL (80-100); MONOCYTES # (AUTO) 1.3 K/uL (0.1-1.0); MONOCYTES % (AUTO) 16.2 % (2.0-9.0); NEUTROPHILS % (AUTO) 75.2 % (40.0-70.0); PLATELET COUNT (AUTO) 204 K/uL (150-450); RED BLOOD CELL COUNT(AUTO) 3.15 MIL/uL (4.50-5.90); RED CELL DISTRIBUTION WIDTH 18.2 % (11.5-14.5)
[2019-10-21 07:00] VITALS: BP 147/71
[2019-10-21 07:09] LABS: ALBUMIN 2.2 g/dL (3.4-5.0); BILIRUBIN,TOTAL 0.4 mg/dL (0.1-1.0); CALCIUM, TOTAL 8.2 mg/dL (8.8-10.5); CREATININE 3.76 mg/dL (0.60-1.30); MAGNESIUM 1.8 mg/dL (1.80-2.40); POTASSIUM 4.6 mmol/L (3.5-5.1); TOTAL PROTEIN, SERUM 6.1 g/dL (6.4-8.2)
[2019-10-21 07:10] LABS: PLATELET MORPHOLOGY COMMENT LARGE PLTS PRESENT
[2019-10-21] MEDS: SEVELAMER CARBONATE 800 MG POWDER PACKET PO SCH ×2 (08:47→12:37)
[2019-10-21] MEDS: OXYGEN THERAPY IH SCH (08:47)
[2019-10-21] MEDS: POLYETHYLENE GLYCOL 3350 17 GM PACKET PO SCH (08:48)
[2019-10-21] MEDS: METOPROLOL TARTRATE 25 MG TABLET PO SCH (08:49)
[2019-10-21] MEDS: VITAMIN B COMPLEX WITH C TABLET PO SCH (08:49)
[2019-10-21] MEDS: ISOSORBIDE DINITRATE 10 MG TABLET PO SCH (08:49)
[2019-10-21] MEDS: PANTOPRAZOLE SODIUM 40 MG DR TABLET PO SCH (08:49)
[2019-10-21] MEDS: DOCUSATE SODIUM 100 MG CAPSULE PO SCH (08:49)
[2019-10-21] MEDS: EPOETIN ALFA 10,000 UNITS/ML 2 ML VIAL SQ SCH (08:49)
[2019-10-21] MEDS: RANOLAZINE 500 MG ER TABLET PO SCH (08:49)
[2019-10-21] MEDS ORDERED: AMIODARONE HCL 200 MG TABLET PO SCH (09:00)
[2019-10-21] MEDS ORDERED: AmLODIPine BESYLATE 5 MG TABLET PO SCH (09:00)
[2019-10-21] MEDS: INSULIN LISPRO 100 UNITS/ML SQ PRN (12:52)
[2019-10-21] MEDS ORDERED: INSNOV SQ (13:37)
[2019-10-21 14:30] VITALS: BP 149/74
[2019-10-21 16:30] LABS: GLUCOMETER DEV NAME(LOC) PVLAB.8; GLUCOSE,POINT OF CARE 153 MG/DL (70-110)
== END 2019-10-21 15:30 | disposition home health service (06) | DRG 280 ==
LOC: 2WR 10-13 17:42
PROVIDERS: ADMIT Physical Medicine & Rehabilitation; ATTEND Physical Medicine & Rehabilitation
PROC: 5A1D70Z Performance of Urinary Filtration, Intermittent, Less than 6 Hours Per Day (ICD-10-PCS; 2019-10-15)
PROC: 5A1D70Z Performance of Urinary Filtration, Intermittent, Less than 6 Hours Per Day (ICD-10-PCS; 2019-10-18)
PROC: 30233N1 Transfusion of Nonautologous Red Blood Cells into Peripheral Vein, Percutaneous Approach (ICD-10-PCS; principal; 2019-10-20)
PROC: 5A1D70Z Performance of Urinary Filtration, Intermittent, Less than 6 Hours Per Day (ICD-10-PCS; 2019-10-20)
DX: I21.4 Non-ST elevation (NSTEMI) myocardial infarction (principal); N18.6 End stage renal disease; E46 Unspecified protein-calorie malnutrition; I13.2 Hypertensive heart and chronic kidney disease with heart failure and with stage 5 chronic kidney disease, or end stage renal disease; I50.22 Chronic systolic (congestive) heart failure; N25.81 Secondary hyperparathyroidism of renal origin; I25.10 Atherosclerotic heart disease of native coronary artery without angina pectoris; D63.8 Anemia in other chronic diseases classified elsewhere; E11.22 Type 2 diabetes mellitus with diabetic chronic kidney disease; E11.51 Type 2 diabetes mellitus with diabetic peripheral angiopathy without gangrene; E78.5 Hyperlipidemia, unspecified; F32.9 Major depressive disorder, single episode, unspecified; F41.9 Anxiety disorder, unspecified; J44.9 Chronic obstructive pulmonary disease, unspecified; K20.9 Esophagitis, unspecified; K59.00 Constipation, unspecified; M10.9 Gout, unspecified; R62.7 Adult failure to thrive; Z79.899 Other long term (current) drug therapy; Z95.5 Presence of coronary angioplasty implant and graft; Z83.3 Family history of diabetes mellitus; Z85.46 Personal history of malignant neoplasm of prostate; Z92.3 Personal history of irradiation; Z99.2 Dependence on renal dialysis; Z91.81 History of falling
CPT/HCPCS: 83735; 86850; 86900; 86901; 86920; 87081; 92523; 92526; 93005; 97110; 97116; 97150; 97163; 97166; 97530; 97535; 99366; J0885; J1815; J7030; P9016

== ENCOUNTER 2019-12-01 20:35 | Inpatient (IN) | payer MEDICARE, OTHER ==
[~2019-12-01] VITALS: Ht 167.6 cm; Wt 48.3 kg
[~2019-12-01 20:35] MED LIST changes: -ALLO100T PO; -AMLO10TA7 PO; +AMLO5TAB9 PO; -APIX2.5T PO; -ASPI-556 PO; -ASPI81 PO; -ATOR-2 PO; +B CO PO; -B CO1TAB6 PO; -CARV6.2534 PO; -DILT240C93 PO; +DOCU-275 PO; -DOCU-342 PO; -DOCU250C91 PO; +DOXY150T5 PO; +INSU100V SQ; -ISOS30TA6 PO; -LEVO500 PO; +MELA3TAB66 PO; +METO25 PO; +NTP TD; -ONDA4TAB4 PO; -SEVE800T17 PO; -VIT1TABL81 PO
[2019-12-01 21:31] LABS: GLUCOSE,POINT OF CARE 214 MG/DL (70-110)
[2019-12-01] MEDS ORDERED: ALLO100T PO (21:48)
[2019-12-01] MEDS ORDERED: NITR0.4T52 SL (21:48)
[2019-12-01 22:22] LABS: BASOPHILS % (AUTO) 0.2 % (0.0-2.0); EOSINOPHILS % (AUTO) 0.6 % (1.0-6.0); HEMATOCRIT 37.6 % (41-53); HEMOGLOBIN 12.1 g/dL (13.5-17.5); LYMPHOCYTES # (AUTO) 0.3 K/uL (1.0-4.8); LYMPHOCYTES % (AUTO) 4.1 % (22.0-44.0); MEAN CORPUSCULAR HEMOGLOBIN 28.9 pg (26.0-34.0); MEAN CORPUSCULAR HGB CONC 32.2 G/dL (31.0-37.0); MEAN CORPUSCULAR VOLUME 90 fL (80-100); MONOCYTES # (AUTO) 1.3 K/uL (0.1-1.0); MONOCYTES % (AUTO) 18.1 % (2.0-9.0); NEUTROPHILS # (AUTO) 5.7 K/uL (1.8-7.7); PLATELET COUNT (AUTO) 133 K/uL (150-450); RED BLOOD CELL COUNT(AUTO) 4.19 MIL/uL (4.50-5.90); RED CELL DISTRIBUTION WIDTH 23.2 % (11.5-14.5)
[2019-12-01 22:40] LABS: CALCIUM, TOTAL 9.8 mg/dL (8.8-10.5); CREATININE 3.54 mg/dL (0.60-1.30); POTASSIUM 5.5 mmol/L (3.5-5.1)
[2019-12-01 22:47] LABS: ALBUMIN 3.5 g/dL (3.4-5.0); BILIRUBIN,TOTAL 0.7 mg/dL (0.1-1.0); TOTAL PROTEIN, SERUM 8.1 g/dL (6.4-8.2)
[2019-12-01 23:11] LABS: PLATELET MORPHOLOGY COMMENT GIANT PLTS PRESENT
[2019-12-01 23:18] LABS: INR 1.1 (0.9-1.1); PROTHROMBIN TIME 10.7 SEC (9.4-11.6)
[2019-12-01] MEDS ORDERED: INSULIN REGULAR, HUMAN 100 UNITS/ML IVP ONE (23:30)
[2019-12-01] MEDS ORDERED: DEXTROSE 50%-WATER 25 GM/50 ML SYRINGE IVP ONE (23:30)
[2019-12-01] MEDS ORDERED: ALBUTEROL SULFATE 5 MG/ML 20 ML NEB SOLN [BULK] NEB ONE (23:30)
[2019-12-01] MEDS ORDERED: CALCIUM GLUCONATE 100 MG/ML 10 ML IVP ONE (23:30)
[2019-12-01] MEDS ORDERED: SODIUM CHLORIDE 0.9% 50 ML ONE (23:44)
[2019-12-02] MEDS ORDERED: MORPHINE SULFATE 2 MG/ML SYRINGE IVP PRN
[2019-12-02] MEDS ORDERED: ACETAMINOPHEN 325 MG TABLET PO PRN
[2019-12-02] MEDS ORDERED: MAGNESIUM HYDROXIDE SUSPENSION 30 ML UDCUP PO PRN
[2019-12-02] MEDS ORDERED: IPRATROPIUM BROMIDE 0.5 MG/2.5 ML NEB SOLUTION NEB PRN
[2019-12-02] MEDS ORDERED: ZOLPIDEM TARTRATE 10 MG TABLET PO PRN
[2019-12-02] MEDS ORDERED: HYDROCODONE/ACETAMINOPHEN 5-325 MG TABLET PO PRN
[2019-12-02] MEDS ORDERED: ALBUTEROL SULFATE 2.5 MG/0.5 ML NEB SOLUTION NEB PRN
[2019-12-02] MEDS ORDERED: 0.9% SODIUM CHLORIDE 5 ML NEB SOLUTION NEB ONE (00:28)
[2019-12-02 00:32] LABS: GLUCOSE,POINT OF CARE 96 MG/DL (70-110)
[2019-12-02] MEDS: NITROGLYCERIN 2% (1 GM=INCH) PACKET TP SCH ×4 (00:48→18:00)
[2019-12-02] MEDS ORDERED: DEXTROSE 50%-WATER 25 GM/50 ML SYRINGE IVP ONE ×2 (01:45)
[2019-12-02 01:54] LABS: GLUCOSE,POINT OF CARE 50 MG/DL (70-110)
[2019-12-02 02:14] LABS: GLUCOSE,POINT OF CARE 213 MG/DL (70-110)
[2019-12-02 03:32] LABS: GLUCOSE,POINT OF CARE 181 MG/DL (70-110)
[2019-12-02 04:57] LABS: CHOL/HDL RATIO 1.5 (4.2-7.3)
[2019-12-02 06:45] LABS: GLUCOSE,POINT OF CARE 89 MG/DL (70-110)
[2019-12-02] MEDS: ONDANSETRON HCL 4 MG/2 ML VIAL IVP PRN ×2 (07:45→14:24)
[2019-12-02] MEDS: ALLOPURINOL 300 MG TABLET PO SCH (08:18)
[2019-12-02] MEDS: ISOSORBIDE DINITRATE 20 MG TABLET PO SCH ×3 (08:19→22:13)
[2019-12-02] MEDS: VITAMIN B COMPLEX WITH C TABLET PO SCH (08:19)
[2019-12-02] MEDS: AMIODARONE HCL 200 MG TABLET PO SCH (08:19)
[2019-12-02] MEDS: AmLODIPine BESYLATE 10 MG TABLET PO SCH (08:19)
[2019-12-02] MEDS: DOCUSATE SODIUM 250 MG CAPSULE PO SCH ×2 (08:19→22:13)
[2019-12-02] MEDS: RANOLAZINE 500 MG ER TABLET PO SCH ×2 (08:20→22:14)
[2019-12-02] MEDS: POLYETHYLENE GLYCOL 3350 17 GM PACKET PO SCH (08:20)
[2019-12-02] MEDS: PANTOPRAZOLE SODIUM 40 MG DR TABLET PO SCH ×2 (08:24→22:13)
[2019-12-02] MEDS: METOPROLOL TARTRATE 25 MG TABLET PO SCH ×2 (08:25→22:13)
[2019-12-02] MEDS: HydrALAZINE HCL 25 MG TABLET PO SCH ×2 (08:25→22:13)
[2019-12-02] MEDS: FAMOTIDINE 10 MG/ML 2 ML VIAL IVP SCH ×2 (08:25→22:13)
[2019-12-02] MEDS: ASPIRIN 81 MG CHEWABLE TABLET PO SCH (08:25)
[2019-12-02] MEDS: DOXYCYCLINE HYCLATE 100 MG CAPSULE PO SCH ×2 (08:25→22:14)
[2019-12-02] MEDS ORDERED: DOCUSATE SODIUM 100 MG CAPSULE PO SCH (09:00)
[2019-12-02 11:07] LABS: GLUCOSE,POINT OF CARE 153 MG/DL (70-110)
[2019-12-02 13:55] LABS: GLUCOSE,POINT OF CARE 99 MG/DL (70-110)
[2019-12-02] MEDS: SEVELAMER CARBONATE 800 MG POWDER PACKET PO SCH (16:53)
[2019-12-02 19:52] LABS: GLUCOSE,POINT OF CARE 145 MG/DL (70-110)
[2019-12-02 20:30] VITALS: BP 152/77
[2019-12-02] MEDS: TraZODone HCL 50 MG TABLET PO SCH (22:13)
[2019-12-02] MEDS: ATORVASTATIN CALCIUM 40 MG TABLET PO SCH (22:13)
[2019-12-02] MEDS: INSULIN GLARGINE,HUM.REC.ANLOG 100 UNITS/ML SQ SCH (22:56)
[2019-12-03] VITALS (7 sets, daily range): BP systolic 124–158; BP diastolic 59–79
[2019-12-03] MEDS: NITROGLYCERIN 2% (1 GM=INCH) PACKET TP SCH ×4 (01:16→20:43)
[2019-12-03] MEDS: SEVELAMER CARBONATE 800 MG POWDER PACKET PO SCH ×2 (06:20→20:43)
[2019-12-03] MEDS ORDERED: EPOETIN ALFA 10,000 UNITS/ML VIAL SQ PRN (07:00)
[2019-12-03] MEDS: AMIODARONE HCL 200 MG TABLET PO SCH (09:00)
[2019-12-03] MEDS: POLYETHYLENE GLYCOL 3350 17 GM PACKET PO SCH (09:00)
[2019-12-03] MEDS: ISOSORBIDE DINITRATE 20 MG TABLET PO SCH ×3 (09:00→21:00)
[2019-12-03] MEDS: METOPROLOL TARTRATE 25 MG TABLET PO SCH ×2 (09:00→21:00)
[2019-12-03] MEDS: HydrALAZINE HCL 25 MG TABLET PO SCH ×2 (09:00→21:00)
[2019-12-03] MEDS: PANTOPRAZOLE SODIUM 40 MG DR TABLET PO SCH ×2 (09:20→20:43)
[2019-12-03] MEDS: VITAMIN B COMPLEX WITH C TABLET PO SCH (09:20)
[2019-12-03] MEDS: DOCUSATE SODIUM 250 MG CAPSULE PO SCH ×2 (09:20→20:43)
[2019-12-03] MEDS: DOXYCYCLINE HYCLATE 100 MG CAPSULE PO SCH ×2 (09:20→21:00)
[2019-12-03] MEDS: ALLOPURINOL 300 MG TABLET PO SCH (09:21)
[2019-12-03] MEDS: FAMOTIDINE 10 MG/ML 2 ML VIAL IVP SCH ×2 (09:23→21:00)
[2019-12-03 09:59] LABS: PROSTATE SPECIFIC ANTIGEN 0.21 ng/mL (0.00-4.00)
[2019-12-03 10:03] LABS: ALBUMIN 3.7 g/dL (3.4-5.0); CALCIUM, TOTAL 9.6 mg/dL (8.8-10.5); CREATININE 6.45 mg/dL (0.60-1.30); POTASSIUM 5.6 mmol/L (3.5-5.1)
[2019-12-03] MEDS: RANOLAZINE 500 MG ER TABLET PO SCH ×2 (13:59→20:42)
[2019-12-03] MEDS ORDERED: SODIUM CHLORIDE 0.9% 2,000 ML ONE (14:30)
[2019-12-03 15:35] LABS: GLUCOMETER DEV NAME(LOC) 5S.2A; GLUCOSE,POINT OF CARE 151 MG/DL (70-110)
[2019-12-03 15:35] LABS: GLUCOMETER DEV NAME(LOC) 5S.2A; GLUCOSE,POINT OF CARE 151 MG/DL (70-110)
[2019-12-03] MEDS: TraZODone HCL 50 MG TABLET PO SCH (20:43)
[2019-12-03] MEDS: AmLODIPine BESYLATE 10 MG TABLET PO SCH (20:43)
[2019-12-03] MEDS: ASPIRIN 81 MG CHEWABLE TABLET PO SCH (21:00)
[2019-12-03] MEDS: ATORVASTATIN CALCIUM 40 MG TABLET PO SCH (21:00)
[2019-12-03 21:01] LABS: ALBUMIN 3.6 g/dL (3.4-5.0); BILIRUBIN,TOTAL 0.8 mg/dL (0.1-1.0); CALCIUM, TOTAL 9.5 mg/dL (8.8-10.5); CREATININE 3.67 mg/dL (0.60-1.30); POTASSIUM 4.8 mmol/L (3.5-5.1); TOTAL PROTEIN, SERUM 8.3 g/dL (6.4-8.2)
[2019-12-03] MEDS: INSULIN GLARGINE,HUM.REC.ANLOG 100 UNITS/ML SQ SCH (21:11)
[2019-12-03 21:40] LABS: GLUCOMETER DEV NAME(LOC) 5S.2A; GLUCOSE,POINT OF CARE 179 MG/DL (70-110)
[2019-12-04] VITALS (7 sets, daily range): BP systolic 116–156; BP diastolic 51–83
[2019-12-04] MEDS: NITROGLYCERIN 2% (1 GM=INCH) PACKET TP SCH ×5 (00:39→23:29)
[2019-12-04] MEDS: SEVELAMER CARBONATE 800 MG POWDER PACKET PO SCH ×2 (06:43→18:44)
[2019-12-04] MEDS: VITAMIN B COMPLEX WITH C TABLET PO SCH (09:00)
[2019-12-04] MEDS: METOPROLOL TARTRATE 25 MG TABLET PO SCH ×2 (09:00→21:28)
[2019-12-04] MEDS: HydrALAZINE HCL 25 MG TABLET PO SCH ×2 (09:00→21:28)
[2019-12-04] MEDS: FAMOTIDINE 10 MG/ML 2 ML VIAL IVP SCH ×2 (09:00→21:29)
[2019-12-04] MEDS: AmLODIPine BESYLATE 10 MG TABLET PO SCH (09:00)
[2019-12-04] MEDS: DOXYCYCLINE HYCLATE 100 MG CAPSULE PO SCH ×2 (09:00→21:27)
[2019-12-04] MEDS: RANOLAZINE 500 MG ER TABLET PO SCH ×2 (11:07→21:28)
[2019-12-04] MEDS: ASPIRIN 81 MG CHEWABLE TABLET PO SCH (11:08)
[2019-12-04] MEDS: DOCUSATE SODIUM 250 MG CAPSULE PO SCH ×2 (11:08→21:27)
[2019-12-04] MEDS: PANTOPRAZOLE SODIUM 40 MG DR TABLET PO SCH ×2 (11:08→21:27)
[2019-12-04] MEDS: ISOSORBIDE DINITRATE 20 MG TABLET PO SCH ×3 (11:08→21:28)
[2019-12-04] MEDS: POLYETHYLENE GLYCOL 3350 17 GM PACKET PO SCH (11:09)
[2019-12-04] MEDS: ALLOPURINOL 300 MG TABLET PO SCH (11:09)
[2019-12-04] MEDS: AMIODARONE HCL 200 MG TABLET PO SCH (11:17)
[2019-12-04 16:44] LABS: BASOPHILS % (AUTO) 0.5 % (0.0-2.0); HEMATOCRIT 38.7 % (41-53); HEMOGLOBIN 12.1 g/dL (13.5-17.5); LYMPHOCYTES # (AUTO) 0.6 K/uL (1.0-4.8); LYMPHOCYTES % (AUTO) 10.6 % (22.0-44.0); MEAN CORPUSCULAR HEMOGLOBIN 28.6 pg (26.0-34.0); MEAN CORPUSCULAR HGB CONC 31.2 G/dL (31.0-37.0); MEAN CORPUSCULAR VOLUME 92 fL (80-100); MONOCYTES % (AUTO) 18.9 % (2.0-9.0); NEUTROPHILS # (AUTO) 3.7 K/uL (1.8-7.7); PLATELET COUNT (AUTO) 124 K/uL (150-450); RED BLOOD CELL COUNT(AUTO) 4.22 MIL/uL (4.50-5.90); RED CELL DISTRIBUTION WIDTH 23.3 % (11.5-14.5)
[2019-12-04 16:56] LABS: CALCIUM, TOTAL 9.1 mg/dL (8.8-10.5); CREATININE 5.73 mg/dL (0.60-1.30); POTASSIUM 5.8 mmol/L (3.5-5.1)
[2019-12-04 17:02] LABS: ALBUMIN 3.1 g/dL (3.4-5.0); BILIRUBIN,TOTAL 0.6 mg/dL (0.1-1.0)
[2019-12-04 19:08] LABS: GLUCOMETER DEV NAME(LOC) 5S.2A; GLUCOSE,POINT OF CARE 159 MG/DL (70-110)
[2019-12-04] MEDS: ATORVASTATIN CALCIUM 40 MG TABLET PO SCH (21:28)
[2019-12-04] MEDS: TraZODone HCL 50 MG TABLET PO SCH (21:28)
[2019-12-04] MEDS: INSULIN GLARGINE,HUM.REC.ANLOG 100 UNITS/ML SQ SCH (21:44)
[2019-12-05 05:12] VITALS: BP 125/78
[2019-12-05] MEDS ORDERED: SODIUM CHLORIDE 0.9% 1,000 ML ONE ×2 (05:34→05:35)
[2019-12-05] MEDS: SEVELAMER CARBONATE 800 MG POWDER PACKET PO SCH ×2 (06:02→17:56)
[2019-12-05] MEDS: NITROGLYCERIN 2% (1 GM=INCH) PACKET TP SCH ×3 (06:02→17:51)
[2019-12-05 06:27] LABS: GLUCOMETER DEV NAME(LOC) 5S.2A; GLUCOSE,POINT OF CARE 105 MG/DL (70-110)
[2019-12-05 06:27] LABS: GLUCOMETER DEV NAME(LOC) 5S.2A; GLUCOSE,POINT OF CARE 170 MG/DL (70-110)
[2019-12-05 07:27] LABS: BASOPHILS % (AUTO) 0.5 % (0.0-2.0); EOSINOPHILS % (AUTO) 2.5 % (1.0-6.0); HEMATOCRIT 37.6 % (41-53); HEMOGLOBIN 11.8 g/dL (13.5-17.5); LYMPHOCYTES # (AUTO) 0.6 K/uL (1.0-4.8); LYMPHOCYTES % (AUTO) 10.2 % (22.0-44.0); MEAN CORPUSCULAR HEMOGLOBIN 28.6 pg (26.0-34.0); MEAN CORPUSCULAR HGB CONC 31.3 G/dL (31.0-37.0); MEAN CORPUSCULAR VOLUME 91 fL (80-100); MONOCYTES # (AUTO) 1.2 K/uL (0.1-1.0); MONOCYTES % (AUTO) 20.3 % (2.0-9.0); NEUTROPHILS % (AUTO) 66.5 % (40.0-70.0); PLATELET COUNT (AUTO) 132 K/uL (150-450); RED BLOOD CELL COUNT(AUTO) 4.12 MIL/uL (4.50-5.90); RED CELL DISTRIBUTION WIDTH 23.8 % (11.5-14.5)
[2019-12-05 07:49] LABS: ALBUMIN 2.8 g/dL (3.4-5.0); BILIRUBIN,TOTAL 0.5 mg/dL (0.1-1.0); CREATININE 6.6 mg/dL (0.60-1.30); POTASSIUM 5.5 mmol/L (3.5-5.1); TOTAL PROTEIN, SERUM 6.7 g/dL (6.4-8.2)
[2019-12-05 08:17] VITALS: BP 102/60
[2019-12-05] MEDS: ISOSORBIDE DINITRATE 20 MG TABLET PO SCH ×2 (08:20→15:48)
[2019-12-05] MEDS: AmLODIPine BESYLATE 10 MG TABLET PO SCH (09:00)
[2019-12-05] MEDS: ASPIRIN 81 MG CHEWABLE TABLET PO SCH (09:00)
[2019-12-05 11:56] VITALS: BP 154/77
[2019-12-05] MEDS: FAMOTIDINE 10 MG/ML 2 ML VIAL IVP SCH (12:09)
[2019-12-05] MEDS: HydrALAZINE HCL 25 MG TABLET PO SCH (12:09)
[2019-12-05] MEDS: METOPROLOL TARTRATE 25 MG TABLET PO SCH (12:10)
[2019-12-05] MEDS: DOCUSATE SODIUM 250 MG CAPSULE PO SCH (12:10)
[2019-12-05] MEDS: PANTOPRAZOLE SODIUM 40 MG DR TABLET PO SCH (12:10)
[2019-12-05] MEDS: POLYETHYLENE GLYCOL 3350 17 GM PACKET PO SCH (12:10)
[2019-12-05] MEDS: AMIODARONE HCL 200 MG TABLET PO SCH (12:10)
[2019-12-05] MEDS: RANOLAZINE 500 MG ER TABLET PO SCH (12:10)
[2019-12-05] MEDS: DOXYCYCLINE HYCLATE 100 MG CAPSULE PO SCH (12:11)
[2019-12-05] MEDS: VITAMIN B COMPLEX WITH C TABLET PO SCH (12:11)
[2019-12-05] MEDS: ALLOPURINOL 300 MG TABLET PO SCH (12:11)
[2019-12-05 12:27] VITALS: BP 154/77
[2019-12-05 13:28] LABS: GLUCOMETER DEV NAME(LOC) 5N.1; GLUCOSE,POINT OF CARE 127 MG/DL (70-110)
[2019-12-05] MEDS ORDERED: ASPI81 PO (14:51)
[2019-12-05] MEDS ORDERED: FAMO20 PO (14:51)
[2019-12-05] MEDS ORDERED: MIRT-92 PO (14:52)
[2019-12-05] MEDS ORDERED: ACET-3207 PO (14:54)
[2019-12-05] MEDS ORDERED: AUD NEB (14:55)
[2019-12-05] MEDS ORDERED: IPRNEB IH (14:56)
[2019-12-05] MEDS ORDERED: HYDR-4061 PO (14:56)
[2019-12-05 15:39] VITALS: BP 141/74
[2019-12-05] MEDS ORDERED: IPRNEB NEB (16:25)
[2019-12-05] MEDS ORDERED: MOM30 PO (16:26)
[2019-12-05 17:24] LABS: GLUCOMETER DEV NAME(LOC) 5S.2A; GLUCOSE,POINT OF CARE 138 MG/DL (70-110)
[2019-12-05] MEDS ORDERED: MIRTAZAPINE 15 MG TABLET PO SCH (21:00)
== END 2019-12-05 18:30 | DRG 193 ==
LOC: EMS 20:36 → 5N 12-02 18:29 → 5S 12-02 20:30
PROVIDERS: ADMIT Hospitalist; ATTEND Hospitalist
PROC: 5A1D70Z Performance of Urinary Filtration, Intermittent, Less than 6 Hours Per Day (ICD-10-PCS; principal; 2019-12-03)
PROC: 5A1D70Z Performance of Urinary Filtration, Intermittent, Less than 6 Hours Per Day (ICD-10-PCS; 2019-12-05)
DX: J18.9 Pneumonia, unspecified organism (principal); N18.6 End stage renal disease; E46 Unspecified protein-calorie malnutrition; N25.81 Secondary hyperparathyroidism of renal origin; N30.41 Irradiation cystitis with hematuria; F33.2 Major depressive disorder, recurrent severe without psychotic features; I13.2 Hypertensive heart and chronic kidney disease with heart failure and with stage 5 chronic kidney disease, or end stage renal disease; R45.851 Suicidal ideations; Z68.1 Body mass index [BMI] 19.9 or less, adult; D50.0 Iron deficiency anemia secondary to blood loss (chronic); E11.22 Type 2 diabetes mellitus with diabetic chronic kidney disease; I25.10 Atherosclerotic heart disease of native coronary artery without angina pectoris; E78.5 Hyperlipidemia, unspecified; R62.7 Adult failure to thrive; K59.09 Other constipation; D63.1 Anemia in chronic kidney disease; E11.51 Type 2 diabetes mellitus with diabetic peripheral angiopathy without gangrene; I50.9 Heart failure, unspecified; D69.6 Thrombocytopenia, unspecified; E87.5 Hyperkalemia; Z99.2 Dependence on renal dialysis; Z85.46 Personal history of malignant neoplasm of prostate; Z98.890 Other specified postprocedural states; Z79.4 Long term (current) use of insulin; Z79.899 Other long term (current) drug therapy; I25.2 Old myocardial infarction; Z95.1 Presence of aortocoronary bypass graft; Z83.3 Family history of diabetes mellitus; Z82.49 Family history of ischemic heart disease and other diseases of the circulatory system; Z95.5 Presence of coronary angioplasty implant and graft
CPT/HCPCS: 84153; 87081; 93005; 94640; 97162; 97166; 97530; 97535; J0610; J1815; J2270; J2405; J3490; J7030; J7050

== ENCOUNTER 2019-12-28 17:31 | Emergency (ER) | payer MEDICARE, OTHER ==
[~2019-12-28] VITALS: Ht 165.1 cm; Wt 56.0 kg
[~2019-12-28 17:31] MED LIST changes: +ACET-3207 PO; +ALLO100T PO; -AMIO200T44 PO; +AMIO200T67 PO; +ASPI-728 PO; +AUD NEB; +FAMO20 PO; +HYDR-4061 PO; +IPRNEB IH; +IPRNEB NEB; -MELA3TAB66 PO; +MIRT-92 PO; +MOM30 PO; +NITR0.4T52 SL; -NTP TD
[2019-12-28 18:07] LABS: GLUCOSE,POINT OF CARE 58 MG/DL (70-110)
[2019-12-28 18:08] LABS: BASOPHILS % (AUTO) 0.2 % (0.0-2.0); EOSINOPHILS % (AUTO) 0 % (1.0-6.0); HEMATOCRIT 21.7 % (41-53); LYMPHOCYTES # (AUTO) 0.6 K/uL (1.0-4.8); LYMPHOCYTES % (AUTO) 2.3 % (22.0-44.0); MEAN CORPUSCULAR HEMOGLOBIN 27.1 pg (26.0-34.0); MEAN CORPUSCULAR HGB CONC 31.3 G/dL (31.0-37.0); MEAN CORPUSCULAR VOLUME 87 fL (80-100); MONOCYTES # (AUTO) 2.2 K/uL (0.1-1.0); MONOCYTES % (AUTO) 8.4 % (2.0-9.0); NEUTROPHILS # (AUTO) 23.2 K/uL (1.8-7.7); PLATELET COUNT (AUTO) 148 K/uL (150-450); RED BLOOD CELL COUNT(AUTO) 2.51 MIL/uL (4.50-5.90); RED CELL DISTRIBUTION WIDTH 21.6 % (11.5-14.5)
[2019-12-28 18:10] LABS: NEUTROPHILS % (AUTO) 89.1 % (40.0-70.0)
[2019-12-28 18:13] LABS: HEMOGLOBIN 6.8 g/dL (13.5-17.5)
[2019-12-28] MEDS ORDERED: DOCU-342 PO (18:22)
[2019-12-28] MEDS ORDERED: SEVE800T17 PO (18:22)
[2019-12-28] MEDS ORDERED: ISOS20TA9 PO (18:22)
[2019-12-28 18:25] LABS: PLATELET MORPHOLOGY COMMENT GIANT PLTS PRESENT
[2019-12-28 18:29] LABS: ALBUMIN 2.7 g/dL (3.4-5.0); BILIRUBIN,TOTAL 1.2 mg/dL (0.1-1.0); CALCIUM, TOTAL 9.6 mg/dL (8.8-10.5); CREATININE 5.88 mg/dL (0.60-1.30); TOTAL PROTEIN, SERUM 7.5 g/dL (6.4-8.2)
[2019-12-28] MEDS ORDERED: ALBUTEROL SULFATE 5 MG/ML 20 ML NEB SOLN [BULK] NEB ONE (18:30)
[2019-12-28] MEDS ORDERED: PANTOPRAZOLE SODIUM 40 MG/VIAL IVP ONE (18:30)
[2019-12-28] MEDS ORDERED: IPRATROPIUM BROMIDE 0.5 MG/2.5 ML NEB SOLUTION NEB ONE (18:30)
[2019-12-28 18:31] LABS: POTASSIUM 7.5 mmol/L (3.5-5.1)
[2019-12-28] MEDS ORDERED: 0.9% SODIUM CHLORIDE 5 ML NEB SOLUTION NEB ONE (18:36)
[2019-12-28] MEDS ORDERED: SODIUM BICARBONATE [ADULT] 8.4% 50 MEQ/50 ML SYRINGE IVP ONE (18:45)
[2019-12-28] MEDS ORDERED: CALCIUM GLUCONATE 100 MG/ML 10 ML IVP ONE (18:45)
[2019-12-28] MEDS ORDERED: INSULIN REGULAR, HUMAN 100 UNITS/ML IVP ONE (18:45)
[2019-12-28] MEDS ORDERED: DEXTROSE 50%-WATER 25 GM/50 ML SYRINGE IVP ONE (18:45)
[2019-12-28] MEDS ORDERED: PIPERACILLIN/TAZO 3.375 GM/D5W 50 ML IV ONE (19:00)
[2019-12-28] MEDS ORDERED: ACETAMINOPHEN 325 MG TABLET PO PRN (19:30)
[2019-12-28] MEDS ORDERED: ONDANSETRON HCL 4 MG/2 ML VIAL IVP PRN (19:30)
[2019-12-28 20:13] LABS: LACTIC ACID 4.4 mmol/L (0.4-2.0)
[2019-12-28 21:20] VITALS: BP 127/66
== END 2019-12-28 22:00 | disposition home or self-care (01) ==
LOC: EMS 17:31
DX: J96.90 Respiratory failure, unspecified, unspecified whether with hypoxia or hypercapnia (principal); N17.9 Acute kidney failure, unspecified; E87.5 Hyperkalemia; D64.9 Anemia, unspecified; J18.9 Pneumonia, unspecified organism; D72.829 Elevated white blood cell count, unspecified; E11.9 Type 2 diabetes mellitus without complications; E78.00 Pure hypercholesterolemia, unspecified; I48.91 Unspecified atrial fibrillation; I25.10 Atherosclerotic heart disease of native coronary artery without angina pectoris; Z95.1 Presence of aortocoronary bypass graft; Z79.4 Long term (current) use of insulin; Z79.899 Other long term (current) drug therapy; Z79.82 Long term (current) use of aspirin
CPT/HCPCS: 36415; 71045; 76705; 80053; 82962; 83605; 83880; 84484; 85025; 87040; 93005; 94644; 96374; 99291; C9113; J1815; J0610; J3490